=== PATIENT | female | born 1990 | race Caucasian/White ===

== ENCOUNTER 2019-06-17 14:12 | Emergency (ER) | payer BC, SELFPAY ==
[2019-06-17 14:15] VITALS: BP 133/90; PULSE 97; RESP 19; TEMP 36.2; O2SAT 100
--- NOTE | 2019-06-17 14:34 | ED.BURNSMOKE ---
HPI - Burn/Smoke Inhalation General Chief complaint: Burn/Smoke Inhalation Stated complaint: hand injury Time Seen by Provider: 06/17/19 14:24 Source: patient Mode of arrival: ambulatory Limitations: no limitations History of Present Illness HPI Narrative: This is a 29 year old female that presents to the ER for burn to the hands. Reports she was cleaning her Keurig and the coffee cup was about to overfill so she grabbed the cup and it was hot. Reports she then spilt the hot water on her hands. Reports burning pain on the back of her right hand and back of the fingers on her left hand. Denies numbness. Related Data Home Medications Medication Instructions Recorded Confirmed trazodone 04/11/19 Allergies Allergy/AdvReac Type Severity Reaction Status Date / Time No Known Allergies Allergy Verified 06/17/19 14:18 Review of Systems Review of Systems: Narrative: CONSTITUTIONAL: Denies fever SKIN: Reports burn NEUROLOGIC: Denies numbness All systems reviewed & are unremarkable except as noted in HPI and below PMFSH Past Medical History Medical History (Updated 06/17/19 @ 15:53 by Opal Parra PA-C) History of sleep disturbance Social History Social History (Updated 06/17/19 @ 14:38 by Opal Parra PA-C) Smoking status: Never smoker Gender identity (if verbalized by the patient): Female Exam Narrative: Exam Narrative: GENERAL: Well-appearing, well-nourished, and in no acute distress. HEAD: Normocephalic, atraumatic. EYES: EOMI. EXTREMITIES: Normal range of motion. No edema, erythema, blistering or skin breakdown. Mild redness to the dorsal surface of the left 2nd-4th fingers. SKIN: Warm, dry, no rash. NEURO: No focal deficits. Alert and oriented x3. PSYCH: Normal mood and affect Course Vital Signs Vital signs: Vital Signs Temperature 97.2 F L 06/17/19 14:15 Pulse Rate 97 06/17/19 14:15 Respiratory Rate 06/17/19 14:15 Blood Pressure 133/90 06/17/19 14:15 Pulse Oximetry 100 06/17/19 14:15 Temperature 97.2 F L 06/17/19 14:15 Pulse Rate 97 06/17/19 14:15 Respiratory Rate 06/17/19 14:15 Blood Pressure 133/90 06/17/19 14:15 Pulse Oximetry 100 06/17/19 14:15 MDM - Burn/Smoke Inhalation MDM Narrative Medical decision making narrative: Patient presents to the emergency department for superficial burn to the left second through fourth fingers. Patient was updated on tetanus. Her wounds were cleansed and bandaged with Silvadene and Kerlix. Patient was instructed on wound care. She will be given plastics for follow-up. Patient was given warnings to return to the ER Critical Care Time Critical Care Time Critical Care Time: No Discharge Plan Discharge Clinical Impression: Superficial burn of back of right hand Qualifiers: Encounter type: initial encounter Qualified Code(s): T23.161A - Burn of first degree of back of right hand, initial encounter Superficial burn of digit of left hand Qualifiers: Encounter type: initial encounter Qualified Code(s): T23.122A - Burn of first degree of single left finger (nail) except thumb, initial encounter Patient Disposition: Home, Self-Care Condition: Stable Instructions: Antibiotic Form, Superficial Burn (ED) Additional Instructions: Return to the emergency department if you experience fever, increasing redness and swelling of your wounds, abnormal drainage from your wound, or any other symptoms that are concerning to you Apply ointment and change your bandage twice daily. Keep the area clean with mild soap and water Follow-up with your primary care doctor. Dr. Bey is a plastic/hand surgeon if needed Prescriptions: No Action trazodone 50 mg tablet RF: 0 amoxicillin 500 mg tablet 500 mg PO Q8H 10 Days Qty: 30 RF: 0 ibuprofen [IBU] 600 mg tablet 600 mg PO Q6H PRN (Reason: fever or pain) Qty: 10 RF: 0 Follow-up/Referrals: Demetria,Sandi De Los Santos, BUSINESS MACHINES TEACHER-BC [Primary Care Provider
[2019-06-17] MEDS: SILVER SULFADIAZINE 1% CR 50 GM JAR (*BKC) 1 APPLIC TOPICAL (15:54)
[2019-06-17] MEDS: TETANUS,DIPHTHERIA,AC PERTUSSIS ADULT 0.5 ML (ADACEL) IM (15:54)
--- NOTE | 2019-06-23 07:47 | PC.NURSE ---
LATE ENTRY This note is being entered to document information to the patient's record. The following information was omitted on [06/17/19]. silvadene and gauze dressing applied to brothers on left hand and fingers. pt states pain is less intense after dressing applied.
== END 2019-06-17 16:12 | disposition home or self-care (01) ==
PROVIDERS: Emergency Provider Emergency Medicine; PCP Nurse Practitioner Family
DX: T23.161A Burn of first degree of back of right hand, initial encounter (principal); T23.132A Burn of first degree of multiple left fingers (nail), not including thumb, initial encounter; T31.0 Burns involving less than 10% of body surface; Z23 Encounter for immunization; X11.8XXA Contact with other hot tap-water, initial encounter
CPT/HCPCS: 16000; 90471; 90715; 99283; A9270

== ENCOUNTER 2019-06-29 08:58 | Emergency (ER) | payer BC, SELFPAY ==
[2019-06-29] VITALS (7 sets, daily range): BP systolic 108–149; BP diastolic 70–99; PULSE 110–143; RESP 19–34; TEMP 36.6–37.4; O2SAT 97–100
--- NOTE | ~2019-06-29 | XR_ITS ---
EXAMINATION: XR chest 2V 06/29/2019 10:12 INDICATION: Cough, fever and shortness of breath PROCEDURE: 2 view chest COMPARISON: Comparison to multiple prior studies sequentially, with oldest reviewed study dated 12/09. FINDINGS: The lungs are clear. The cardiomediastinal silhouette is within normal limits. There are no pleural effusions. There is no pneumothorax suspected. IMPRESSION: 1: NO ACUTE CARDIOPULMONARY DISEASE. Reviewed, dictated and finalized at location B. ECTIVE SIGNAL REPAIRER
--- NOTE | 2019-06-29 09:55 | ED.URI ---
HPI - URI/Sore Throat General Chief Complaint: Upper Respiratory Infection <DIANA Delacruz Last Filed: 06/29/19 12:25> Stated Complaint: strep <DIANA Delacruz Last Filed: 06/29/19 12:25> Time Seen by Provider: 06/29/19 09:40 <DIANA Delacruz Last Filed: 06/29/19 12:25> Source: patient <DIANA Delacruz Last Filed: 06/29/19 12:25> Mode of arrival: ambulatory <DIANA Delacruz Last Filed: 06/29/19 12:25> Limitations: no limitations <DIANA Delacruz Last Filed: 06/29/19 12:25> History of Present Illness HPI Narrative: This is a 29 year old female that presents to the ER for cold symptoms x 2 days. Reports fever, cough, congestion, and sore throat. Also reports some shortness of breath. Reports her mother was recently seen here and diagnosed with influenza. Denies chest pain. <DIANA Delacruz Last Filed: 06/29/19 12:25> Related Data Home Medications: Home Medications Medication Instructions Recorded Confirmed trazodone 04/11/19 L norgest/e.estradiol-e.estrad 06/29/19 [Ashlyna] <DIANA Delacruz Last Filed: 06/29/19 12:25> Allergies/Adverse Reactions: Allergies Allergy/AdvReac Type Severity Reaction Status Date / Time No Known Allergies Allergy Verified 06/29/19 09:25 <DIANA Delacruz Last Filed: 06/29/19 12:25> Review of Systems Review of Systems: Narrative: CONSTITUTIONAL: Reports fever, chills ENT: Reports rhinorrhea, congestion, sore throat. Denies otalgia. CARDIOVASCULAR: Denies chest pain RESPIRATORY: Reports cough and dyspnea. <DIANA Delacruz Last Filed: 06/29/19 12:25> All systems reviewed & are unremarkable except as noted in HPI and below <DIANA Delacruz Last Filed: 06/29/19 12:25> [facility] Past Medical History Medical History: Medical History (Updated 06/29/19 @ 12:21 by Opal Parra PA-C) History of sleep disturbance <Opal Parra PA-C - Last Filed: 06/29/19 12:25> Social History Social History: Social History (Updated 06/17/19 @ 14:38 by Opal Parra PA-C) Smoking status: Never smoker Gender identity (if verbalized by the patient): Female <Opal Parra PA-C - Last Filed: 06/29/19 12:25> Exam Narrative: Exam Narrative: GENERAL: Well-appearing, well-nourished, and in no acute distress. HEAD: Normocephalic, atraumatic. EYES: EOMI. ENT: Nares with rhinorrhea, no epistaxis. Mucous membranes moist. Oropharynx with mild tonsillar hypertrophy and erythema, no exudate or other lesions. Bilateral TMs pearly melendez non-bulging NECK: Supple. No adenopathy or masses. CHEST: Clear to auscultation. No respiratory distress. No wheezes rales or rhonchi HEART: Tachycardic, regular rhythm. No murmur heard. Normal peripheral pulses. EXTREMITIES: Normal range of motion. No edema. SKIN: Warm, dry, no rash. NEURO: No focal deficits. Alert and oriented x3. PSYCH: Normal mood and affect <Opal Parra PA-C - Last Filed: 06/29/19 12:25> Course Vital Signs Vital signs: Vital Signs Temperature 37.4 C 06/29/19 09:16 Pulse Rate 134 H 06/29/19 09:16 Respiratory Rate 34 H 06/29/19 09:16 Blood Pressure 149/99 H 06/29/19 09:16 Pulse Oximetry 99 06/29/19 09:16 Temperature 36.8 C 06/29/19 13:18 Pulse Rate 110 H 06/29/19 13:18 Respiratory Rate 19 06/29/19 13:18 Blood Pressure 118/84 06/29/19 13:18 Pulse Oximetry 100 06/29/19 13:18 <Opal Parra PA-C - Last Filed: 06/29/19 12:25> Vital Signs Temperature 37.4 C 06/29/19 09:16 Pulse Rate 134 H 06/29/19 09:16 Respiratory Rate 34 H 06/29/19 09:16 Blood Pressure 149/99 H 06/29/19 09:16 Pulse Oximetry 99 06/29/19 09:16 Temperature 36.8 C 06/29/19 13:18 Pulse Rate 110 H 06/29/19 13:18 Respiratory Rate 19 06/29/19 13:18 Blood Pressure 118/84 06/29/19 13:18 Pulse Oximetry 100 06/29/19 13:18 <Alicia Escobar
--- NOTE | 2019-06-29 10:05 | PC.NURSE ---
Patient to radiology
[2019-06-29] MEDS: SODIUM CHLORIDE 0.9% IV 1,000 ML 999 ML IV CONT ×2 (10:32→12:17)
== END 2019-06-29 13:35 | disposition home or self-care (01) ==
PROVIDERS: Emergency Provider Emergency Medicine; PCP Nurse Practitioner Family
DX: B34.9 Viral infection, unspecified (principal)
CPT/HCPCS: 71046; 87081; 87804; 87880; 96361; 96374; 99284; J0131; J7030

== ENCOUNTER 2021-03-13 09:44 | Emergency (ER) | payer BC, SELFPAY ==
[2021-03-13 09:56] VITALS: BP 147/95; PULSE 105; RESP 16; TEMP 36.2; O2SAT 99
[2021-03-13 11:46] VITALS: BP 122/79; PULSE 98; RESP 21; O2SAT 99
[2021-03-13] MEDS: SODIUM CHLORIDE 0.9% IV 1,000 ML 999 ML IV CONT ×2 (11:51→13:02)
[2021-03-13] MEDS: METOCLOPRAMIDE HCL INJ 10 MG/2 ML VIAL IV PUSH (11:51)
[2021-03-13 11:52] LABS: Basophils Absolute Auto 0.1 K/mm3 (0.0-0.1); Basophils Percent Auto 0.5 % (0.2-1.2); Eosinophils Absolute Auto 0.2 K/mm3 (0-0.3); Eosinophils Percent Auto 1.4 % (0-4.4); Hemoglobin 13.6 g/dL (12.0-15.0); Immature Granulocyte Absolute 0.04 K/mm3 (0.00-0.031); Immature Granulocyte Percent A 0.4 % (0-0.5); Lymphocytes Absolute Auto 1.83 K/mm3 (0.9-3.2); Lymphocytes Percent Auto 16.2 % (18.3-44.2); Mean Corpuscular Hemoglobin 28.8 pg (26-34); Mean Corpuscular Volume 84.7 fl (80-100); Mean Platelet Volume 8.5 fl (7.4-10.4); Monocytes Absolute Auto 0.5 K/mm3 (0.1-0.6); Monocytes Percent Auto 4.5 % (2.6-8.5); Neutrophils Absolute Auto 8.7 K/mm3 (1.3-6.7); Platelet Count Result 360 k/mm3 (150-375); Red Blood Count 4.72 M/mm3 (4.2-5.4); White Blood Count 11.3 K/mm3 (4.5-10.0)
[2021-03-13 11:57] LABS: Add Urine Microscopic? YES; Appearance Urine Cloudy (Clear); Bacteria Urine Trace /hpf; Bilirubin Urine Negative (Negative); Blood Urine Negative (Negative); Color Urine Amber (Yellow); Glucose Urine UA Negative (Negative); Ketones Urine Trace mg/dL (Negative); Leukocyte Esterase Ur Negative LEU/UL (Negative); Mucus Urine Heavy /lpf; Nitrate Urine Negative (Negative); Protein Urine 1+ mg/dL (Negative); Squamous Epithelial Cell Urine Many /hpf (Few); Urobilinogen Urine Negative mg/dL (<2.0); WBC Urine 0-3 /hpf
[2021-03-13 11:59] LABS: Specific Grav Ur 1.039 (1.001-1.035)
[2021-03-13 12:13] LABS: Alanine Aminotransferase 18 U/L (4-35); Albumin Level 4.3 g/dL (3.5-5.1); Alkaline Phosphatase 98 U/L (38-126); Anion Gap 9 mmol/L (8-16); Aspartate Amino Transferase 19 U/L (14-36); Bilirubin,Total 0.2 mg/dL (0.2-1.3); Blood Urea Nitrogen 6 mg/dL (7-17); Calcium 9.6 mg/dL (8.4-10.2); Carbon Dioxide 23 mmol/L (22-30); Chloride 105 mmol/L (98-107); Estimated CRCL calculation 127 ml/min; Estimated Glomerular Filt Rate > 60; Glucose 94 mg/dL (65-110); Lipase 26 U/L (23-300); Potassium 3.9 mmol/L (3.4-5.0); Sodium 137 mmol/L (137-145)
--- NOTE | 2021-03-13 14:31 | ED.GENADULT ---
HPI - General Adult General Chief complaint: Nausea/Vomiting/Diarrhea Stated complaint: 8 weeks , n/v Time Seen by Provider: 03/13/21 11:03 Source: patient Mode of arrival: ambulatory Limitations: no limitations History of Present Illness HPI narrative: Patient is 30-year-old female G3P 2-week 8 of with chief complaint of persistent vomiting and nausea. Patient reports that she was prescribed Zofran by her PULVI MIXER OPERATOR Dr. Perez but it has not remitted her symptoms. Patient denies pelvic pain or vaginal bleeding. She denies any other symptoms or concerns. Related Data Home Medications Medication Instructions Recorded Confirmed trazodone 04/11/19 L norgest/e.estradiol-e.estrad 06/29/19 [Ashlyna] Allergies Allergy/AdvReac Type Severity Reaction Status Date / Time Sulfa (Sulfonamide Allergy Hives Verified 03/13/21 11:40 Antibiotics) Review of Systems Review of Systems: CONSTITUTIONAL: Denies fever, chills, or sweats. EYES: Denies visual changes, redness, or discharge. ENT: Denies rhinorrhea, congestion, sore throat, or otalgia. CARDIOVASCULAR: Denies chest pain, palpitations, or edema. RESPIRATORY: Denies cough or dyspnea. GASTROINTESTINAL: Reports nausea and vomiting denies abdominal pain or diarrhea. GENITOURINARY: Denies dysuria or hematuria. SKIN: Denies rash or itching. MUSCULOSKELETAL: Denies back pain, joint pain, or myalgia. NEUROLOGIC: Denies headache, numbness, dizziness, or weakness. PSYCHIATRIC: Denies anxiety or depression. PMFSH Past Medical History Medical History (Updated 03/13/21 @ 14:19 by Dorian Hernandez PA-C) History of sleep disturbance Social History Social History (Updated 06/17/19 @ 14:38 by Opal Parra PA-C) Smoking status: Never smoker Gender identity (if verbalized by the patient): Female Exam Narrative: GENERAL: Well-appearing, well-nourished. Appears uncomfortable. Holding emesis bag. HEAD: Normocephalic, atraumatic. EYES: PERRLA and EOMI. NECK: Supple. No adenopathy or masses. Range of motion intact. CHEST: Clear to auscultation. No respiratory distress. No wheezes rales or rhonchi HEART: Regular rate and rhythm. No murmur heard. Normal peripheral pulses. ABDOMEN: Soft, nontender, nondistended, normal active bowel sounds. EXTREMITIES: Normal range of motion. No edema. SKIN: Warm, dry, no rash. NEURO: No focal deficits. Alert and oriented x3. PSYCH: Normal mood and affect. Course Vital Signs Vital signs: Vital Signs Temperature 97.1 F L 03/13/21 09:56 Pulse Rate 105 H 03/13/21 09:56 Respiratory Rate 16 03/13/21 09:56 Blood Pressure 147/95 H 03/13/21 09:56 Pulse Oximetry 99 03/13/21 09:56 Temperature 97.1 F L 03/13/21 09:56 Pulse Rate 98 03/13/21 11:46 Respiratory Rate 21 H 03/13/21 11:46 Blood Pressure 122/79 03/13/21 11:46 Pulse Oximetry 99 03/13/21 11:46 Medical Decision Making MDM Narrative Medical decision making narrative: Patient has had remittance of nausea and vomiting with Reglan. Patient has been able to tolerate p.o. challenge and has urinated multiple times. Patient reports being ready to be discharged immediately and denies any other needs or concerns. Patient has been instructed to follow-up with her PULVI MIXER OPERATOR for further evaluation and management of her . Patient does not want to wait in the emergency department for her OB to be consulted prior to discharge. Patient not have any vaginal bleeding or discharge. Patient not have any pelvic pain. Patient instructed to return to emergency department if she has any emergent symptoms. Vital Signs Vital Signs: Vital Signs Temperature 97.1 F L 03/13/21 09:56 Pulse Rate 105 H 03/13/21 09:56 Respiratory Rate 16 03/13/21 09:56 Blood Pressure 147/95 H 03/13/21 09:56 Pulse Oximetry 99 03/13/21 09:56 Temperature 97.1 F L 03/13/21 09:56 Pulse Rate 98 03/13/21 11:46 Respiratory Rate 21 H 03/13/21 11:46 Bloo
[2021-03-13 14:37] VITALS: BP 121/80; PULSE 97; RESP 20; O2SAT 100
== END 2021-03-13 14:39 | disposition home or self-care (01) ==
PROVIDERS: Physician Assistant; Emergency Provider Emergency Medicine; PCP Nurse Practitioner Family
DX: O21.9 Vomiting of pregnancy, unspecified (principal); Z3A.08 8 weeks gestation of pregnancy
CPT/HCPCS: 36415; 80053; 81001; 81025; 83690; 84702; 85025; 96361; 96374; 99284; J2765; J7030

== ENCOUNTER 2021-03-30 12:00 | Outpatient (CLI) | payer BC, SELFPAY ==
--- NOTE | ~2021-03-30 | US_ITS ---
EXAMINATION: US OB <= 14 weeks fetus DATE: 03/30/2021 12:16 INDICATION: Uncertain dates. . TECHNIQUE: Real-time transabdominal pelvic ultrasound was performed. COMPARISON: None. FINDINGS: The uterus measures 14.2 x 8.3 x 9.6 cm. There is an intrauterine gestational sac. A yolk sac is [place] ntified. The crown rump length measures 5.0 cm, which correlates with an estimated gestational age of 11 weeks and 5 day(s) (+/-) 1 week(s) and 0 day(s). heart motion is identified measurin g 150 beats per minute (bpm) by M-mode Doppler. The right ovary is not visualized. The left ovary moses sures 2.8 x 1.9 x 2.7 cm. There is no free fluid in the pelvis. IMPRESSION: 1. Single living intrauterine gestation with estimated date of delivery of 10/14/2021. Reviewed, dictated and finalized at location A. CONTROLLER IMPRESSION: 1. Single living intrauterine gestation with estimated date of delivery of 09/27.
== END 2021-03-30 12:01 ==
PROVIDERS: Visit Provider Obstetrics & Gynecology Gynecology
DX: Z36.87 Encounter for antenatal screening for uncertain dates (principal)
CPT/HCPCS: 76801

== ENCOUNTER 2021-04-28 10:40 | Emergency (ER) | payer BC, SELFPAY ==
[2021-04-28 10:56] VITALS: BP 142/100; PULSE 105; RESP 14; TEMP 36.6; O2SAT 100
--- NOTE | 2021-04-28 12:18 | ED.DENTAL ---
HPI - Dental/Oral General Chief complaint: Dental/Oral Stated complaint: dental pain Time Seen by Provider: 04/28/21 11:17 Source: patient Mode of arrival: ambulatory Limitations: no limitations History of Present Illness HPI Narrative: This is a 30 year old female that presents to the ER for adenopathy present over the last 2 days. Reports tender left submandibular adenopathy. Associated with a sore throat. Patient reports she is currently 16 weeks . Denies any problems with the . No vaginal bleeding or pelvic cramping. Her OB is Dr. Gunter. Denies fever, or dysphagia. Related Data Home Medications Medication Instructions Recorded Confirmed trazodone 04/11/19 Allergies Allergy/AdvReac Type Severity Reaction Status Date / Time Sulfa (Sulfonamide Allergy Hives Verified 04/28/21 11:49 Antibiotics) Review of Systems Review of Systems: CONSTITUTIONAL: Denies fever ENT: Reports sore throat All systems reviewed & are unremarkable except as noted in HPI and below PMFSH Past Medical History Medical History (Updated 04/28/21 @ 14:18 by Opal Parra PA-C) History of sleep disturbance Social History Social History (Updated 06/17/19 @ 14:38 by Opal Parra PA-C) Smoking status: Never smoker Gender identity (if verbalized by the patient): Female Exam Narrative: GENERAL: Well-appearing, well-nourished, and in no acute distress. HEAD: Normocephalic, atraumatic. EYES: EOMI. ENT: Nares clear, no rhinorrhea or epistaxis. Mucous membranes moist. Oropharynx with erythema, without tonsillar hypertrophy, exudate or other lesions. Uvula midline. No trismus. Floor of mouth is soft. Bilateral TMs pearly melendez non-bulging. Poor dentition, but there is no obvious dental abscess NECK: Supple. Tender left-sided submandibular adenopathy CHEST: Clear to auscultation. No respiratory distress. No wheezes rales or rhonchi HEART: Regular rate and rhythm. No murmur heard. Normal peripheral pulses. EXTREMITIES: Normal range of motion. No edema. SKIN: Warm, dry, no rash. NEURO: No focal deficits. Alert and oriented x3. PSYCH: Normal mood and affect Course Vital Signs Vital signs: Vital Signs Temperature 97.8 F 04/28/21 10:56 Pulse Rate 105 H 04/28/21 10:56 Respiratory Rate 14 04/28/21 10:56 Blood Pressure 142/100 H 04/28/21 10:56 Pulse Oximetry 100 04/28/21 10:56 Temperature 97.8 F 04/28/21 10:56 Pulse Rate 105 H 04/28/21 10:56 Respiratory Rate 14 04/28/21 10:56 Blood Pressure 142/100 H 04/28/21 10:56 Pulse Oximetry 100 04/28/21 10:56 MDM - Dental/Oral MDM Narrative Medical decision making narrative: Patient presents to the emergency department for tender left submandibular adenopathy. She is afebrile and nontoxic-appearing. Mild erythema of the posterior oropharynx. No exudate. Uvula is midline. There is no trismus. The floor the mouth is soft. Patient does have poor dentition, but no obvious dental abscess on exam. Strep screen was negative. This will be sent for culture. Patient will be started on oral antibiotics. Will be given ENT if needed for follow-up. Instructed to follow-up with her OB at her scheduled appointment. She has no related concerns today. She was given warnings to return to the ER Lab Data Attestation: I reviewed the patient's lab results. Labs: Strep Screen Presumptive Negative *(Reference Range: Negative)* Critical Care Time Critical Care Time Critical Care Time: No Discharge Plan Discharge Clinical Impression: Lymphadenopathy, submandibular Patient Disposition: Home, Self-Care Condition: Stable Instructions: Antibiotic Form, Lymphadenopathy (ED) Additional Instructions: Return to the Emergency Department if you experience fever >101, redness and swelling of your face, you are unable to swallow, difficulty breathing, or any other s
[2021-04-28] MEDS: AMOXICILLIN 500 MG CAPSULE PO (14:35)
== END 2021-04-28 14:35 | disposition home or self-care (01) ==
PROVIDERS: Emergency Provider Emergency Medicine; PCP Nurse Practitioner Family
DX: O26.892 Other specified pregnancy related conditions, second trimester (principal); R59.1 Generalized enlarged lymph nodes; Z3A.16 16 weeks gestation of pregnancy
CPT/HCPCS: 87081; 87880; 99283; A9270

== ENCOUNTER 2021-05-02 16:28 | Outpatient (CLI) | payer BC, SELFPAY ==
[2021-05-02 16:58] LABS: Basophils Percent Auto 0.3 % (0.2-1.2); Eosinophils Absolute Auto 0.1 K/mm3 (0-0.3); Eosinophils Percent Auto 1.2 % (0-4.4); Hematocrit 34.2 % (37.0-47.0); Hemoglobin 11.8 g/dL (12.0-15.0); Immature Granulocyte Absolute 0.04 K/mm3 (0.00-0.031); Immature Granulocyte Percent A 0.4 % (0-0.5); Lymphocytes Absolute Auto 1.86 K/mm3 (0.9-3.2); Lymphocytes Percent Auto 17.5 % (18.3-44.2); Mean Corpuscular HGB Conc 34.5 g/dl (32-36); Mean Corpuscular Hemoglobin 28.3 pg (26-34); Mean Platelet Volume 8.5 fl (7.4-10.4); Monocytes Absolute Auto 0.5 K/mm3 (0.1-0.6); Monocytes Percent Auto 4.3 % (2.6-8.5); Neutrophils Absolute Auto 8.1 K/mm3 (1.3-6.7); Neutrophils Percent Auto 76.3 % (45.5-73.1); Platelet Count Result 367 k/mm3 (150-375); Red Blood Count 4.17 M/mm3 (4.2-5.4); Red Cell Distribution Width 13.7 % (11.5-14.5); White Blood Count 10.6 K/mm3 (4.5-10.0)
[2021-05-02 17:09] LABS: Hemoglobin A1C 4.8 % (<5.7)
[2021-05-02 17:31] LABS: Total Volume 24 Hour Urine 700 ml
[2021-05-02 19:48] LABS: Total Protein Urine 24 Hr 112 mg/24hr (28-141); Total Protein Urine Random 16 mg/dL
[2021-05-02 20:07] LABS: Vitamin D 25 Hydroxy 27.3 ng/mL
[2021-05-02 20:30] LABS: HIV 1/2 Ab P24 Ag Result Negative (Negative)
[2021-05-02 20:36] LABS: Rubella IgG Antibody 18.7 IU/ML
[2021-05-02 20:56] LABS: Hepatitis B Surface Anti Res Indeterminate; Hepatitis C Virus Antibody Negative (Negative)
[2021-05-04 13:58] LABS: Rapid Plasma Reagin Non-Reactive (NonReactive)
== END 2021-05-02 16:29 | disposition home or self-care (01) ==
PROVIDERS: PCP Nurse Practitioner Family; Visit Provider Obstetrics & Gynecology Gynecology
DX: Z36.9 Encounter for antenatal screening, unspecified (principal)
CPT/HCPCS: 36415; 81050; 82306; 83036; 84156; 85025; 86592; 86703; 86706; 86762; 86803; 86850; 86900; 86901; G0432

== ENCOUNTER 2021-05-15 11:28 | Outpatient (CLI) | payer BC, SELFPAY ==
--- NOTE | ~2021-05-15 | US_ITS ---
EXAMINATION: US OB /maternal detail DATE: 05/15/2021 12:09 INDICATION: anatomic survey. TECHNIQUE: Real-time ultrasound of the pelvis was performed. COMPARISON: Ultrasound 03/30/2021 FINDINGS: There is a single living fetus in vertex presentation. The placenta is posterior, 6 cm from the cerv ix. heart rate is 135 beats per minute (bpm). The amniotic fluid volume is subjectively normal. The following biometric data were obtained: Biparietal diameter (BPD): 4.0 cm; head circumference (HC): 15.2 cm; abdominal circumference (AC): 12 .0 cm; femur length (FL): 2.5 cm. These measurements are concordant. Estimated weight is 206 g +/- 31 g, which correlates with the 15th percentile when 10/14/21 is u sed as estimated date of delivery. As single measurements, these parameters are each equal to the following estimated gestational ages w ith ranges of +/- 2 standard deviations: BPD: 18 weeks 1 days (16 weeks 3 days - 19 weeks 6 days). HC: 18 weeks 2 days (16 weeks 5 days - 19 weeks 5 days). AC: 17 weeks 5 days (16 weeks 0 days - 19 weeks 3 days). FL: 17 weeks 4 days (16 weeks 1 days - 18 weeks 6 days). estimated gestational age based solely on measurements from this exam is 18 weeks 0 days +/- 1 weeks 2 days. The cerebral ventricles and visualized portions of the spine are normal. The diaphragm, stomach, kidn eys, and bladder are normal. There are two umbilical arteries to yield a 3-vessel cord. The cord inse rtion is normal. The cisterna magna, nuchal fold, lip, and heart are not well visualized. IMPRESSION: 1. Single living fetus in vertex presentation. 2. Estimated weight is 206 g +/- 31 g, which correlates with the 15th percentile when 10/14/21 is used as estimated date of delivery. This date was set by ultrasound on 03/30/2021. 3. cisterna magna, nuchal fold, lip, and heart not well visualized. Otherwise normal jc omic survey. Reviewed, dictated and finalized at location A. ERGARTEN TUTOR IMPRESSION: 1. Single living fetus in vertex presentation. 2. Estimated weight is 206 g +/- 31 g, which correlates with the 15th pe rcentile when 10/14/21 is used as estimated date of delivery. This date was set by ultrasound on 03/30/2021. 3. cisterna magna, nuchal fold, lip, and heart not well visualized. Other wells normal anatomic survey.
== END 2021-05-15 11:29 ==
PROVIDERS: Visit Provider Obstetrics & Gynecology Gynecology
DX: Z36.9 Encounter for antenatal screening, unspecified (principal); Z3A.18 18 weeks gestation of pregnancy
CPT/HCPCS: 76805

== ENCOUNTER 2021-06-13 11:58 | Outpatient (CLI) | payer BC, SELFPAY ==
--- NOTE | ~2021-06-13 | US_ITS ---
EXAMINATION: US OB follow up DATE: 06/13/2021 12:32 INDICATION: Incomplete anatomic survey, second trimester TECHNIQUE: Real-time ultrasound of the pelvis was performed. The interpreting radiologist was not pre sent for the study. COMPARISON: 05/15/2021 FINDINGS: There is a single living fetus in vertex presentation. The placenta is posterior and 7.2 cm from the internal cervical os. cardiac activity and movement are noted. heart rate is 144 beats per minute (bpm). The amniotic fluid index is subjectively normal. The intracranial str uctures and heart appear normal. IMPRESSION: 1. Single living fetus in vertex presentation. 2. Normal-appearing heart and intracranial structures. Reviewed, dictated and finalized at location A. MANAGER
== END 2021-06-13 11:59 ==
PROVIDERS: Visit Provider Obstetrics & Gynecology Gynecology
DX: Z36.2 Encounter for other antenatal screening follow-up (principal)
CPT/HCPCS: 76816

== ENCOUNTER 2021-07-17 10:20 | Outpatient (CLI) | payer BC, SELFPAY ==
--- NOTE | ~2021-07-17 | US_ITS ---
EXAMINATION: US OB follow up DATE: 07/17/2021 10:44 INDICATION: Size greater than dates during third trimester TECHNIQUE: Real-time ultrasound of the pelvis was performed. The interpreting radiologist was not pre sent for the study. COMPARISON: 06/13/2021 FINDINGS: There is a single living fetus in vertex presentation. The placenta is posterior and 6.7 cm from the internal cervical os. cardiac activity and movement are noted. heart rate is 140 beats per minute (bpm). The amniotic fluid index is 19.0 cm which is normal (normal range: 9. 5 cm to 22.6 cm). The following biometric data were obtained: Biparietal diameter (BPD): 7.0 cm; head circumference (HC): 25.8 cm; abdominal circumference (AC): 23 .4 cm; femur length (FL): 4.8 cm. The femoral length to biparietal diameter ratio is greater than two standard below the mean. These me asurements are otherwise concordant. Estimated weight is 1038 g +/- 155 g, which correlates with the 33rd percentile when 10/14/2021 is used as estimated date of delivery. As single measurements, these parameters are each equal to the following estimated gestational ages w ith ranges of +/- 2 standard deviations: BPD: 28 weeks 1 days ( 26 weeks 0 days - 30 weeks 2 days). HC: 28 weeks 1 days ( 26 weeks 0 days - 30 weeks 1 days). AC: 27 weeks 5 days ( 25 weeks 4 days - 29 weeks 6 days). FL: 26 weeks 0 days ( 23 weeks 6 days - 28 weeks 0 days). estimated gestational age based solely on measurements from this exam is 27 weeks 4 days +/- 1 weeks 3 days. IMPRESSION: 1. Single living fetus in vertex presentation. 2. Normal amniotic fluid index. 3. Estimated weight is 1038 g +/- 155 g, which correlates with the 33rd percentile when 10/15/19 22 is used as estimated date of delivery. 4. Femoral length to biparietal diameter ratio greater than two standard deviations below the mean. Reviewed, dictated and finalized at location B. IMPRESSION: 1. Single living fetus in vertex presentation. 2. Normal amniotic fluid index. 3. Estimated weight is 1038 g +/- 155 g, which correlates with the 33rd p ercentile when 10/14/2021 is used as estimated date of delivery. 4. Femoral length to biparietal diameter ratio greater than two standard deviat ions below the mean.
== END 2021-07-17 10:21 ==
PROVIDERS: Visit Provider Obstetrics & Gynecology Gynecology
DX: O36.63X3 Maternal care for excessive fetal growth, third trimester, fetus 3 (principal); Z3A.27 27 weeks gestation of pregnancy
CPT/HCPCS: 76816

== ENCOUNTER 2021-07-17 12:06 | Outpatient (CLI) | payer BC, SELFPAY ==
[2021-07-17 13:47] LABS: Hematocrit 34.2 % (37.0-47.0); Hemoglobin 11.5 g/dL (12.0-15.0)
[2021-07-17 13:59] LABS: Glucose 1 Hour PP 50gm Dose 145 mg/dL
[2021-07-17 14:38] LABS: HIV 1/2 Ab P24 Ag Result Negative (Negative)
[2021-07-17 15:06] LABS: Hepatitis B Surface Antigen Negative (Negative)
== END 2021-07-17 12:07 | disposition home or self-care (01) ==
LOC: ANHLAB 12:10
PROVIDERS: Visit Provider Obstetrics & Gynecology Gynecology
DX: Z34.92 Encounter for supervision of normal pregnancy, unspecified, second trimester (principal); Z3A.18 18 weeks gestation of pregnancy
CPT/HCPCS: 36415; 82306; 82947; 85014; 85018; 86703; 87340; G0432

== ENCOUNTER 2021-07-26 13:48 | Emergency (ER) | payer BC, SELFPAY ==
[2021-07-26 13:52] VITALS: BP 133/86; PULSE 99; RESP 18; TEMP 36.6; O2SAT 100
--- NOTE | 2021-07-26 14:11 | ECG_ITS ---
Measurements Intervals [place] Rate: 85 P: 26 OK: 116 QRS: 20 QRSD: 92 T: 15 QT: 367 QTc: 437 Interpretive Statements SINUS RHYTHM WITH SHORT OK INTERVAL BORDERLINE ECG NO PREVIOUS ECG AVAILABLE FOR COMPARISON Electronically Signed On 07-26-2021 15:34:30 CDT by Deion Myers M.D.
--- NOTE | 2021-07-26 14:12 | ED.SYNCOPE ---
HPI - Syncope General Chief Complaint: Syncope Stated Complaint: syncope, 28 weeks Time Seen by Provider: 07/26/21 13:56 History of Present Illness HPI narrative: 31-year-old female presents emergency room with complaints of a near syncopal episode. Patient is 20 weeks , has a history of preeclampsia from previous pregnancies. Patient has been experiencing hyperemesis with this . Patient denies nausea or vomiting at this time. Denies injury or trauma Related Data Home Medications Medication Instructions Recorded Confirmed trazodone 04/11/19 escitalopram oxalate 10 mg PO DAILY 07/26/21 Allergies Allergy/AdvReac Type Severity Reaction Status Date / Time Sulfa (Sulfonamide Allergy Hives Verified 04/28/21 11:49 Antibiotics) Review of Systems Review of Systems: CONSTITUTIONAL: Denies fever, chills, or sweats. EYES: Denies visual changes, redness, or discharge. ENT: Denies rhinorrhea, congestion, sore throat, or otalgia. CARDIOVASCULAR: Denies chest pain, palpitations, or edema. RESPIRATORY: Denies cough or dyspnea. GASTROINTESTINAL: Denies abdominal pain, nausea, vomiting, or diarrhea. GENITOURINARY: Denies dysuria or hematuria. SKIN: Denies rash or itching. MUSCULOSKELETAL: Denies back pain, joint pain, or myalgia. NEUROLOGIC: Reports dizziness and lightheadedness PSYCHIATRIC: Denies anxiety or depression. PMFSH Past Medical History Medical History History of sleep disturbance Social History Social History Smoking status: Never smoker Gender identity (if verbalized by the patient): Female Exam Narrative: GENERAL: Well-appearing, well-nourished, and in no acute distress. HEAD: Normocephalic, atraumatic. EYES: PERRLA and EOMI. ENT: Nares clear, no rhinorrhea or epistaxis. Mucous membranes moist. NECK: Supple. No adenopathy or masses. No carotid bruits or JVD CHEST: Clear to auscultation. No respiratory distress. No wheezes rales or rhonchi HEART: Regular rate and rhythm. No murmur heard. Normal peripheral pulses. ABDOMEN: Soft, nontender, nondistended, normal active bowel sounds. EXTREMITIES: Normal range of motion. No edema. SKIN: Warm, dry, no rash. NEURO: No focal deficits. Alert and oriented x3. PSYCH: Normal mood and affect. Course Course Emergency Course: 1630: Discussed case with Dr. Coello. She states that she will have the patient follow-up with her in office in the next 4 to 5 days. Vital Signs Vital signs: Vital Signs Temperature 36.6 C 07/26/21 13:52 Pulse Rate 99 07/26/21 13:52 Respiratory Rate 18 07/26/21 13:52 Blood Pressure 133/86 07/26/21 13:52 Pulse Oximetry 100 07/26/21 13:52 Temperature 36.6 C 07/26/21 13:52 Pulse Rate 99 07/26/21 13:52 Respiratory Rate 18 07/26/21 13:52 Blood Pressure 133/86 07/26/21 13:52 Pulse Oximetry 100 07/26/21 13:52 MDM - Syncope MDM Narrative Medical decision making narrative: 31-year-old female presents emergency room following a near syncopal episode while she was standing at work. Patient denies any nausea or vomiting. CBC shows a slight anemia likely related to her . Patient was given fluids while here in the emergency room, states she is feeling better. 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 Patient likely experienced a syncopal episode due to fluctuations in her her blood pressure secondary to her . Differential Diagnosis Differential diagnosis: Likely syncope due to orthostatic hypotension Medical Records Attestation: I reviewed the patient's medical records. Lab Data Attestation: I reviewed the patient's lab results. Result diagrams: 07/26/21 14:17 07/26/21 14:17 Labs: Lab Results 07/26/21 07/26/21 07/26/21 Range/Units
--- NOTE | 2021-07-26 14:29 | PC.NURSE ---
called Elsy in OB that pt has order for NST - please send an OB nurse over to NST pt. FHT's in '
[2021-07-26 14:30] LABS: Basophils Absolute Auto 0.1 K/mm3 (0.0-0.1); Basophils Percent Auto 0.4 % (0.2-1.2); Eosinophils Absolute Auto 0.1 K/mm3 (0-0.3); Eosinophils Percent Auto 0.5 % (0-4.4); Hematocrit 34.4 % (37.0-47.0); Hemoglobin 11.3 g/dL (12.0-15.0); Immature Granulocyte Absolute 0.07 K/mm3 (0.00-0.031); Immature Granulocyte Percent A 0.6 % (0-0.5); Lymphocytes Absolute Auto 1.71 K/mm3 (0.9-3.2); Lymphocytes Percent Auto 14.9 % (18.3-44.2); Mean Corpuscular HGB Conc 32.8 g/dl (32-36); Mean Corpuscular Hemoglobin 27.8 pg (26-34); Mean Corpuscular Volume 84.5 fl (80-100); Mean Platelet Volume 9.8 fl (7.4-10.4); Monocytes Absolute Auto 0.6 K/mm3 (0.1-0.6); Monocytes Percent Auto 5.5 % (2.6-8.5); Neutrophils Percent Auto 78.1 % (45.5-73.1); Platelet Count Result 336 k/mm3 (150-375); Red Blood Count 4.07 M/mm3 (4.2-5.4); Red Cell Distribution Width 13.2 % (11.5-14.5); White Blood Count 11.5 K/mm3 (4.5-10.0)
[2021-07-26 14:41] LABS: Alanine Aminotransferase 8 U/L (4-35); Albumin Level 3.6 g/dL (3.5-5.1); Alkaline Phosphatase 136 U/L (38-126); Anion Gap 8 mmol/L (8-16); Aspartate Amino Transferase 17 U/L (14-36); Bilirubin,Total 0.2 mg/dL (0.2-1.3); Blood Urea Nitrogen 4 mg/dL (7-17); Carbon Dioxide 21 mmol/L (22-30); Chloride 107 mmol/L (98-107); Estimated CRCL calculation 173 ml/min; Estimated Glomerular Filt Rate > 60; Glucose 86 mg/dL (65-110); Potassium 3.6 mmol/L (3.4-5.0); Sodium 136 mmol/L (137-145)
[2021-07-26 14:47] LABS: Appearance Urine Clear (Clear); Bilirubin Urine Negative (Negative); Blood Urine Negative (Negative); Color Urine Yellow (Yellow); Glucose Urine UA Negative (Negative); Ketones Urine Negative (Negative); Leukocyte Esterase Ur Negative LEU/UL (Negative); Nitrate Urine Negative (Negative); Protein Urine Negative (Negative); Specific Grav Ur 1.025 (1.001-1.035); Urobilinogen Urine 0.2 mg/dL (<2.0)
[2021-07-26 14:51] LABS: Add Urine Microscopic? YES; Mucus Urine Moderate /lpf; RBC Urine 0-2 /hpf (0-2); Squamous Epithelial Cell Urine Occasional /hpf (Few); WBC Urine 0-3 /hpf
--- NOTE | 2021-07-26 14:58 | PC.NURSE ---
Ob was here to monitor baby and stated that everything check out well.
[2021-07-26] MEDS: SODIUM CHLORIDE 0.9% IV 1,000 ML 999 ML IV CONT (15:08)
[2021-07-26 16:46] VITALS: BP 125/84; PULSE 95; RESP 16; O2SAT 100
== END 2021-07-26 16:47 | disposition home or self-care (01) ==
PROVIDERS: Emergency Provider Nurse Practitioner Family; PCP Nurse Practitioner Family
DX: I95.1 Orthostatic hypotension (principal)
CPT/HCPCS: 36415; 80053; 81001; 85025; 93005; 96360; 96361; 99283; J7030

== ENCOUNTER 2021-07-28 13:45 | Outpatient (CLI) | payer BC, SELFPAY ==
[2021-07-28 14:33] LABS: Glucose Fasting Gestational 84 mg/dL (>/=95)
[2021-07-28 16:06] LABS: Glucose 1 Hour Gest 105 mg/dL (>/=180)
[2021-07-28 17:02] LABS: Glucose 2 Hour Gest 112 mg/dL (>/= 155)
[2021-07-28 17:53] LABS: Glucose 3 Hour Gest 115 mg/dL (>/=140)
== END 2021-07-28 13:46 | disposition home or self-care (01) ==
LOC: ANHLAB 13:51
PROVIDERS: PCP Nurse Practitioner Family; Visit Provider Obstetrics & Gynecology Gynecology
DX: O99.810 Abnormal glucose complicating pregnancy (principal); Z3A.28 28 weeks gestation of pregnancy
CPT/HCPCS: 36415; 82951; 82952

== ENCOUNTER 2021-08-02 12:25 | Outpatient (CLI) | payer BC, SELFPAY ==
[2021-08-02 13:09] VITALS: BP 115/70; PULSE 87
[2021-08-02 13:15] VITALS: BP 115/69; PULSE 87
[2021-08-02 13:15] LABS: Basophils Percent Auto 0.4 % (0.2-1.2); Eosinophils Absolute Auto 0.1 K/mm3 (0-0.3); Hematocrit 33.5 % (37.0-47.0); Hemoglobin 10.9 g/dL (12.0-15.0); Immature Granulocyte Absolute 0.04 K/mm3 (0.00-0.031); Immature Granulocyte Percent A 0.4 % (0-0.5); Lymphocytes Absolute Auto 1.56 K/mm3 (0.9-3.2); Lymphocytes Percent Auto 16.9 % (18.3-44.2); Mean Corpuscular HGB Conc 32.5 g/dl (32-36); Mean Corpuscular Hemoglobin 27.4 pg (26-34); Mean Corpuscular Volume 84.2 fl (80-100); Mean Platelet Volume 9.4 fl (7.4-10.4); Monocytes Absolute Auto 0.5 K/mm3 (0.1-0.6); Monocytes Percent Auto 5.7 % (2.6-8.5); Neutrophils Percent Auto 75.6 % (45.5-73.1); Platelet Count Result 280 k/mm3 (150-375); Red Blood Count 3.98 M/mm3 (4.2-5.4); Red Cell Distribution Width 13.4 % (11.5-14.5); White Blood Count 9.3 K/mm3 (4.5-10.0)
[2021-08-02 13:21] LABS: Add Urine Microscopic? YES; Appearance Urine Cloudy (Clear); Bacteria Urine 1+ /hpf; Bilirubin Urine Negative (Negative); Blood Urine Negative (Negative); Color Urine Yellow (Yellow); Glucose Urine UA Negative (Negative); Ketones Urine Negative (Negative); Leukocyte Esterase Ur 1+ LEU/UL (NEGATIVE); Mucus Urine Few /lpf; Nitrate Urine Negative (Negative); Protein Urine Negative (Negative); Specific Grav Ur 1.016 (1.001-1.035); Squamous Epithelial Cell Urine Many /hpf (Few); Urobilinogen Urine Negative mg/dL (<2.0)
[2021-08-02 13:22] LABS: Creatinine Urine 181.4 mg/dL; Total Protein Urine Random 6 mg/dL; Ur Ttl Prot Creatinine Ratio 0.03 mg/mg (0-0.20)
[2021-08-02 13:27] LABS: Alanine Aminotransferase 7 U/L (4-35); Albumin Level 3.5 g/dL (3.5-5.1); Alkaline Phosphatase 147 U/L (38-126); Anion Gap 6 mmol/L (8-16); Aspartate Amino Transferase 17 U/L (14-36); Bilirubin,Total 0.2 mg/dL (0.2-1.3); Blood Urea Nitrogen 3 mg/dL (7-17); Calcium 8.7 mg/dL (8.4-10.2); Carbon Dioxide 22 mmol/L (22-30); Chloride 107 mmol/L (98-107); Estimated Glomerular Filt Rate > 60; Glucose 83 mg/dL (65-110); Potassium 3.5 mmol/L (3.4-5.0); Sodium 135 mmol/L (137-145); Uric Acid 3.9 mg/dL (2.5-7.5)
[2021-08-02 13:30] VITALS: BP 112/71; PULSE 90
[2021-08-02 13:45] VITALS: BP 118/80; PULSE 87
== END 2021-08-02 14:00 | disposition home or self-care (01) ==
LOC: ANHOBOP 12:32 → ANHOBPP 12:34
PROVIDERS: PCP Nurse Practitioner Family; Visit Provider Obstetrics & Gynecology Gynecology
DX: O13.3 Gestational [pregnancy-induced] hypertension without significant proteinuria, third trimester (principal); Z3A.28 28 weeks gestation of pregnancy
CPT/HCPCS: 36415; 80053; 81001; 82570; 84156; 84550; 85025; 87086; 87088; 99199

== ENCOUNTER 2021-08-24 21:03 | Observation (INO) | payer BC, SELFPAY ==
[2021-08-24 21:27] LABS: Add Urine Microscopic? NO; Appearance Urine Clear (Clear); Bilirubin Urine Negative (Negative); Blood Urine Negative (Negative); Color Urine Yellow (Yellow); Glucose Urine UA Negative (Negative); Ketones Urine Negative (Negative); Leukocyte Esterase Ur Negative LEU/UL (NEGATIVE); Nitrate Urine Negative (Negative); Protein Urine Negative (Negative); Specific Grav Ur 1.006 (1.001-1.035); Urobilinogen Urine Negative mg/dL (<2.0)
[2021-08-24 21:30] VITALS: BP 120/72; PULSE 95
[2021-08-24 21:45] VITALS: BP 120/69; PULSE 93
--- NOTE | 2021-08-29 13:56 | P.PNOB_ITS ---
OB - Triage/Final Diagnosis Visit Information Reason for evaluation: threatened labor Comments/Additional reasons for admission: I have assessed the risk for this patient, Kassie Vasquez, and determined that she would benefit from observation care. Evaluation Laboratory results: Laboratory Tests 08/24/21 21:18 Urine Color Yellow Urine Appearance Clear Urine pH 6.0 Ur Specific [place] 1.006 Urine Protein Negative Urine Glucose (UA) Negative Urine Ketones Negative Ur Blood (Man) Negative Urine Nitrate Negative Urine Bilirubin Negative Urine Urobilinogen Negative Ur Leukocyte Esterase Negative
== END 2021-08-24 22:14 | disposition home or self-care (01) ==
PROVIDERS: Admitting Provider Obstetrics & Gynecology Gynecology; PCP Nurse Practitioner Family; Visit Provider Obstetrics & Gynecology Gynecology
DX: O26.899 Other specified pregnancy related conditions, unspecified trimester (principal); R10.2 Pelvic and perineal pain; Z3A.00 Weeks of gestation of pregnancy not specified
CPT/HCPCS: 81003; 87086; G0378; G0379

== ENCOUNTER 2021-09-06 10:51 | Observation (INO) | payer BC, SELFPAY ==
[2021-09-06 11:06] VITALS: BP 130/73; PULSE 96
--- NOTE | 2021-09-06 11:25 | PC.NURSE ---
Pt taken to ED for evaluation
[2021-09-06 11:31] VITALS: BP 130/73; PULSE 106
--- NOTE | 2021-09-12 13:15 | PM.OBTRLD ---
OB - Triage/Final Diagnosis Visit Information Comments/Additional reasons for admission: I have assessed the risk for this patient, Kassie Vasquez, and determined that she would benefit from observation care. Final Diagnosis (1) labor: Code(s): O60.00 - labor without delivery, unspecified trimester Status: Acute
== END 2021-09-06 11:25 | disposition other institution (70) ==
PROVIDERS: Admitting Provider Obstetrics & Gynecology Gynecology; PCP Nurse Practitioner Family; Visit Provider Obstetrics & Gynecology Gynecology
DX: O99.340 Other mental disorders complicating pregnancy, unspecified trimester (principal); Z3A.00 Weeks of gestation of pregnancy not specified; F41.9 Anxiety disorder, unspecified
CPT/HCPCS: 59025; 99283; A9270; G0378; G0379

== ENCOUNTER 2021-09-06 11:30 | Emergency (ER) | payer BC, SELFPAY ==
[2021-09-06 11:44] VITALS: BP 140/76; PULSE 100; RESP 16; TEMP 36.3; O2SAT 100
--- NOTE | 2021-09-06 13:00 | ED.ANXIETY ---
HPI - Anxiety General Chief Complaint: Anxiety Stated Complaint: ANXIETY, 34 WEEKS Time Seen by Provider: 09/06/21 12:29 Source: patient Mode of arrival: ambulatory Limitations: no limitations History of Present Illness HPI narrative: 31 y/o female presents to the ER today for complaints of acute panic/anxiety. She says that it started when she was at work today. She was crying and hyperventilating. She got numbness in her fingers. She was initially seen in labor and deliver to evaluate baby and that was okay. She reports that she is feeling better now but still getting waves of emotional upset. She has several triggers. She is currently treated with SSRI and trazodone for her depression and anxiety. She has been in contact with her OB provider today. Physically she is feeling okay. No chest pain. No shortness of breath. No symptoms of illness. She denies any suicidal thoughts. Related Data Home Medications Medication Instructions Recorded Confirmed trazodone 100 mg PO DAILY 04/11/19 Vitamin 1 tablet DAILY 08/02/21 08/02/21 ergocalciferol (vitamin D2) 50,000 unit PO WEEKLY 08/02/21 08/02/21 ferrous sulfate 27 mg PO BID 08/02/21 08/02/21 fluoxetine 20 mg DAILY 08/02/21 08/02/21 Allergies Allergy/AdvReac Type Severity Reaction Status Date / Time Sulfa (Sulfonamide Allergy Hives Verified 04/28/21 11:49 Antibiotics) Review of Systems Constitutional: Constitutional: Denies chills, Denies fatigue, Denies fever(s) and Denies weakness ENT: Denies sore throat Cardiovascular: Cardiovascular: Denies chest pain, Denies rapid heart rate and Denies radiating jaw, neck or arm pain Respiratory: Respiratory: Denies chest congestion, Denies cough, Denies dyspnea and Denies wheezing Gastrointestinal: Gastrointestinal: Denies abdominal pain, Denies diarrhea, Denies nausea and Denies vomiting Genitourinary: Genitourinary: Reports no additional female genitourinary complaints Musculoskeletal: Musculoskeletal: Denies back pain, Denies myalgias and Denies arthralgias Integumentary/Breasts: Skin/Breast: Denies rash Neurologic: Denies confusion, Denies dizziness, Denies headache(s), Denies focal weakness, Denies numbness and Denies weakness Psychiatric: Psychiatric: Reports anxiety, Reports depression, Denies homicidal ideation and Denies suicidal ideation Endocrine: Endocrine: Denies fatigue Hematologic/Lymphatic: Hematologic/Lymphatic: Reports no additional hematologic/lymphatic complaints Allergic/Immunologic: Allergic/Immunologic: Reports no additional allergic/immunologic complaints [facility] Past Medical History Medical History History of sleep disturbance Social History Social History Smoking status: Never smoker Substance use type: does not use Gender identity (if verbalized by the patient): Female Exam Const: General: no acute distress Orientation/consciousness: patient oriented x3 HENMT: Head: normal to inspection Eyes: Conjunctivae: conjunctivae normal Neck: Neck: normal visual inspection Chest: Chest palpation & inspection: normal inspection of the chest Resp: Effort & Inspection: normal respiratory effort Auscultation: clear to auscultation bilaterally Cardio: Rate: regular rate Rhythm: regular rhythm GI: GI Palp: Yes Soft to palpation, No Tenderness to palpation present (GI) and No Guarding due to palpation present (GI) Auscultation: normal bowel sounds : General: Yes no CVA tenderness Skin: General skin exam: normal color Neuro: General: patient oriented x3 and moves all extremities Extrem: General: normal to inspection Psych: Mental Status: mental status grossly normal Affect: normal affect Attitude: cooperative Thought content: Yes Normal thought content present and No Suicidality present Course Course Emergency Course: Discussed with haily
[2021-09-06] MEDS: LORazepam (*CRX) 0.5 MG TABLET PO (13:17)
[2021-09-06 13:43] VITALS: BP 132/80; PULSE 86; RESP 16; TEMP 36.8; O2SAT 98
== END 2021-09-06 13:45 | disposition home or self-care (01) ==
PROVIDERS: Emergency Provider Nurse Practitioner Family; PCP Nurse Practitioner Family
DX: O99.343 Other mental disorders complicating pregnancy, third trimester (principal); F41.9 Anxiety disorder, unspecified; F32.A Depression, unspecified; Z3A.34 34 weeks gestation of pregnancy
CPT/HCPCS: 99283; A9270

== ENCOUNTER 2021-10-09 05:49 | Inpatient (IN) | payer BC, SELFPAY ==
[2021-10-09] VITALS (87 sets, daily range): BP systolic 118–152; BP diastolic 60–97; PULSE 65–90; RESP 16–18; TEMP 36.3–37.4; O2SAT 96–100; BMI 38.9
[2021-10-09] MEDS: LACTATED RINGERS 1,000 ML 125 ML IV CONT ×2 (06:45→07:29)
--- NOTE | 2021-10-09 06:57 | LDADM ---
This patient, Kassie Vasquez, was admitted to Labor/Delivery/Recovery 106 on 10/09/21 at 05:49. Plans for labor, pain management and were discussed with patient. Patient/family oriented to hospital policies and general routines including ID bracelet, bed and alarms, visiting hours, pain management, procedures, bathroom and other care routines, personal items, smoking policy, room service/diet and guest tray routines, infant security routines, and visiting hours. Patient/Family are encouraged to report perceived risks to care and to ask questions if they do not understand what they are told or what they should do. See OBIX for further documentation.
[2021-10-09 06:58] LABS: Basophils Absolute Auto 0.1 K/mm3 (0.0-0.1); Basophils Percent Auto 0.7 % (0.2-1.2); Eosinophils Absolute Auto 0.1 K/mm3 (0-0.3); Eosinophils Percent Auto 0.6 % (0-4.4); Hematocrit 34.7 % (37.0-47.0); Immature Granulocyte Absolute 0.09 K/mm3 (0.00-0.031); Immature Granulocyte Percent A 0.9 % (0-0.5); Lymphocytes Absolute Auto 2.13 K/mm3 (0.9-3.2); Lymphocytes Percent Auto 20.3 % (18.3-44.2); Mean Corpuscular HGB Conc 31.7 g/dl (32-36); Mean Corpuscular Hemoglobin 24.9 pg (26-34); Mean Corpuscular Volume 78.5 fl (80-100); Mean Platelet Volume 12.2 fl (7.4-10.4); Monocytes Absolute Auto 0.8 K/mm3 (0.1-0.6); Monocytes Percent Auto 7.4 % (2.6-8.5); Neutrophils Absolute Auto 7.4 K/mm3 (1.3-6.7); Neutrophils Percent Auto 70.1 % (45.5-73.1); Platelet Count Result 223 k/mm3 (150-375); Red Blood Count 4.42 M/mm3 (4.2-5.4); Red Cell Distribution Width 14.6 % (11.5-14.5); White Blood Count 10.5 K/mm3 (4.5-10.0)
[2021-10-09 07:14] LABS: Alanine Aminotransferase 7 U/L (6-35); Albumin Level 3.3 g/dL (3.5-5.1); Alkaline Phosphatase 227 U/L (38-126); Anion Gap 5 mmol/L (8-16); Aspartate Amino Transferase 17 U/L (14-36); Bilirubin,Total 0.2 mg/dL (0.2-1.3); Blood Urea Nitrogen 6 mg/dL (7-17); Calcium 8.5 mg/dL (8.4-10.2); Carbon Dioxide 22 mmol/L (22-30); Chloride 109 mmol/L (98-107); Estimated CRCL calculation 122 ml/min; Estimated Glomerular Filt Rate > 60; Glucose 73 mg/dL (65-110); Potassium 3.4 mmol/L (3.4-5.0); Sodium 136 mmol/L (137-145); Uric Acid 5.3 mg/dL (2.5-7.5)
--- NOTE | 2021-10-09 08:32 | WPDOBADMIT ---
Obstetrics - Admit Note Admission Note: record reviewed. No pertinent additions to the history and/or any subsequent changes in the physical findings that are not consistent with the expected course of the were found. Additions to the history and/or subsequent changes in the physical findings follow. None.Was scheduled for MIL this am but came in mandi. On arrival, was 6 cm with BBOW. Epidural placed. Now 8/70/-2 AROM with clear fluid. Expectant mgmt. FHTs reactive.
[2021-10-09 09:11] LABS: Rapid Plasma Reagin Non-Reactive (NonReactive)
[2021-10-09] MEDS: OXYTOCIN 30 UNITS/NS 500 ML 30 UNITS/500 ML BAG 999 UNITS IV CONT (09:59)
--- NOTE | 2021-10-09 10:08 | PM.OBPRVD ---
OB - Delivery Note Procedure Delivery date: 10/09/21 Procedure: Delivery augmentation: Rupture of Membranes Delivery monitor: External FHT and External Uterine Route of delivery: Laceration Description: None Specimen: Yes (placenta for meconium ) Quantitative Blood Loss (ml): 150 Anesthesia type: Epidural Disposition: Floor Baby Date of : 10/09/21 Weeks of gestation at delivery: 39 gender: Male presentation: vertex position: Right Occiput Anterior Placenta delivery description: Spontaneous Cord Vessel Description: 3 Vessels and Around Extremity (around right shoulder) Narrative: Apgars not determined when I left the delivery room
--- NOTE | 2021-10-09 10:09 | PM.OBDSVD ---
DS: Admitting Diagnosis Discharge Date 10/10/21 Admitting Diagnosis IUP 39 wks in labor DS: Discharge Diagnosis Discharge Diagnosis (1) (normal spontaneous vaginal delivery): Code(s): O80 - Encounter for full-term uncomplicated delivery Status: Acute OB - DS: Summary OB Procedures : Ultrasound OB Procedures Intrapartum: Spontaneous Vag Delivery OB Procedures: : None Peripartum Data Delivery Method: Natural Vaginal Laceration Description: None complications: none Status at Discharge Functional status at discharge: independent ambulation Overall status at discharge: patient is progressing back to baseline Time Spent with Patient Time attestation: Total time spent providing and/or coordinating discharge services: DS: Data Data Completed and Pending Labs on day of discharge: Labs from last 24 hours 10/09/21 10/09/21 10/09/21 06:47 06:34 06:34 WBC RBC Hgb Hct MCV MCH MCHC RDW Plt Count MPV Immature Gran % (Auto) Neut % (Auto) Lymph % (Auto) [place] % (Auto) Eos % (Auto) Baso % (Auto) Lymph # (Auto) [place] # (Auto) Eos # (Auto) Baso # (Auto) Abs Immat Gran (auto) Absolute Neuts (auto) Absolute Nucleated RBC Nucleated RBC % Sodium 136 L Potassium 3.4 Chloride 109 H Carbon Dioxide 22 Anion Gap 5 L BUN 6 L Creatinine 0.60 L Estim Creat Clear Calc 122 Estimated GFR > 60 Glucose 73 Uric Acid 5.3 Calcium 8.5 Total Bilirubin 0.2 AST 17 ALT 7 Alkaline Phosphatase 227 H Total Protein 7.0 Albumin 3.3 L RPR Non-reactive Blood Type O Positive Antibody Screen Negative 10/09/21 06:34 WBC 10.5 H RBC 4.42 Hgb 11.0 L Hct 34.7 L MCV 78.5 L MCH 24.9 L MCHC 31.7 L RDW 14.6 H Plt Count 223 MPV 12.2 H Immature Gran % (Auto) 0.9 H Neut % (Auto) 70.1 Lymph % (Auto) 20.3 [place] % (Auto) 7.4 Eos % (Auto) 0.6 Baso % (Auto) 0.7 Lymph # (Auto) 2.13 [place] # (Auto) 0.8 H Eos # (Auto) 0.1 Baso # (Auto) 0.1 Abs Immat Gran (auto) 0.09 H Absolute Neuts (auto) 7.4 H Absolute Nucleated RBC 0.0 Nucleated RBC % 0.0 Sodium Potassium Chloride Carbon Dioxide Anion Gap BUN Creatinine Estim Creat Clear Calc Estimated GFR Glucose Uric Acid Calcium Total Bilirubin AST ALT Alkaline Phosphatase Total Protein Albumin RPR Blood Type Antibody Screen Discharge Plan Discharge Attending physician on discharge: Ann Gunter Discharging Clinician: Ann Gunter Patient Disposition: Home, Self-Care Activity: may shower and pelvic rest Diet: regular Patient Instructions: Antibiotic Form Stand Alone Forms: General Discharge Information Follow-up/Referrals: Ann Gunter MD [Physician] - Discharge Medications: Continued trazodone 50 mg tablet 100 mg PO DAILY fluoxetine 20 mg Tablet 40 mg DAILY ergocalciferol (vitamin D2) 1,250 mcg (50,000 unit) capsule 50,000 unit PO WEEKLY ferrous sulfate 27 mg iron Tablet 27 mg PO BID Vitamin 27 mg iron- 800 mcg Tablet 1 tablet DAILY hydroxyzine HCl 25 mg Tablet 25 mg PO BID PRN (Reason: Anxiety) levocetirizine [Xyzal] 5 mg Tablet 5 mg PO DAILY Discontinued metoclopramide HCl [Reglan] 10 mg tablet 10 mg PO Q6H PRN (Reason: nausea and vomiting) Qty: 20 0RF Date of admission: 10/09/21 05:49 Primary Care Provider: Demetria,Sandi De Los Santos Admitting Provider: Ann Gunter Attending physician on admission: Ann Gunter Condition: Stable
[2021-10-09] MEDS: OXYTOCIN 30 UNITS/NS 500 ML 30 UNITS/500 ML BAG 125 UNITS IV CONT (11:20)
--- NOTE | 2021-10-09 12:40 | PC.NURSE ---
Patient transferred to post room #285 via wheelchair. Support person present. Oriented to unit, room, information board, rooming in, admission packet and security measures. Patient verbalizes understanding.
[2021-10-09] MEDS: IBUPROFEN 600 MG TABLET PO ×2 (15:38→21:03)
--- NOTE | 2021-10-09 16:22 | PC.NURSE ---
[id number] Introductions were made, then consulted with patient to assess needs related to . Mother led the conversation with her experience feeding her so far. Mother works well with her . Encouraged understanding of the benefits of skin to skin (unwrapping and placing vertically on her chest), responsive feeding and how to watch for early feeding signs, frequency of feeding on demand about every 8-12 times in 24 hours (every 2-3 hours), milk production, duration of feeding, signs of adequate intake/output and how to record on the feeding sheet. Reviewed positioning and ear, shoulder, hip alignment, supporting the breast, asymmetrical latch (off-center), and leading with the chin with a big open side gape. Infant was latched to the left breast when RN entered the room. Mother states it feels a bit pinchy . Demonstrated how to detach from the breast to protect the nipple from damage, then infant latched optimally to the right breast in football position. After detached 10-15 min later, then mother independently latched to the left breast in football position. Education given to mother of how to visualize suck/swallow ratios and drinking at the breast. Infant was able to maintain latch without discomfort to mother. Nipple care reviewed with optimal latch and good positioning. Reviewed good handwashing when or touching the breast/nipples to prevent infection. Resources used to facilitate learning were used with the visual handouts/ tool/mom and baby guide. Mother voiced understanding of responsive feedings, stimulating with skin to skin, hand expressed colostrum, touch, talking to to encourage if it has been 2 -3 hours since the start of the last , to call if infant does not latch or there is discomfort with . Reported to the primary RN.
[2021-10-09] MEDS: traZODone HCL 50 MG TABLET 100 MG PO (21:03)
[2021-10-10] MEDS: IBUPROFEN 600 MG TABLET PO (04:32)
[2021-10-10 04:40] VITALS: BP 126/74; PULSE 76; RESP 16; TEMP 36.8
[2021-10-10 04:57] LABS: Hematocrit 31.9 % (37.0-47.0); Hemoglobin 10.1 g/dL (12.0-15.0)
--- NOTE | 2021-10-10 07:22 | PM.OBPNVD ---
OB - PN: Subj Subjective Date/time seen: 10/10/21 07:22 Patient comments: no complaints and pain well controlled baby status: doing well OB - PN: Obj Data Labs CBC & Chem 7: 10/10/21 04:21 10/09/21 06:47 Labs: Laboratory Results - last 24 hr 10/09/21 10/09/21 10/10/21 06:34 06:34 04:21 Hgb 10.1 L Hct 31.9 L RPR Non-reactive Blood Type O Positive Antibody Screen Negative OB - PN A/P Plan day: 1 Plan: routine care, discharge home, follow up 6 weeks and other (Plans IUD Liletta) Time Spent With Patient Time: Total time spent is greater than 50% in coordination of care (as documented) at patient's floor/unit and/or counseling patient: Exam : Bimanual exam- vagina & uterus: other (Uterus firm, nt @U)
[2021-10-10 08:10] VITALS: BP 139/83; PULSE 69; RESP 16; TEMP 36.8; O2SAT 98
--- NOTE | 2021-10-10 08:55 | WPDANLDPN2 ---
Anes-Prog Note L&D Date/Time: 10/10/21 08:55 Comfortable throughout: labor and delivery Neuraxial method: epidural Epidural/Spinal procedure site: clean & non-tender Neuro status: Neuro function grossly intact. Cardiovascular status: normal Respiratory status: normal Airway patency: baseline Mental status: baseline Post-Op hydration status: normal Vital Signs: Last Vital Signs Temp 36.8 C 10/10/21 04:40 Pulse 76 10/10/21 04:40 Resp 16 10/10/21 04:40 BP 126/74 10/10/21 04:40 Pulse Ox 99 10/09/21 15:40 O2 Del Method Room Air 10/09/21 19:30 Pain score (VAS): 3 I/O: Intake & Output 10/09/21 10/10/21 10/10/21 23:59 07:59 15:59 Intake Total 1000 Balance 1000 Post-procedural complaints: none Patient feedback: Patient satisfied with anesthetic care.
[2021-10-10] MEDS: FLUoxetine HCL 20 MG CAPSULE 40 MG BY MOUTH (09:27)
[2021-10-10] MEDS: MULTIVIT/MIN/PREN/FOL AC/IRON TABLET 1 TAB PO (09:27)
--- NOTE | 2021-10-10 13:44 | PC.NURSE ---
[id number] Mother led the conversation with her experience and plan to feed her so far and her ability to independently latch optimally without discomfort. Reminded parents to use good handwashing technique to prevent infection. Mother is feeding appropriately for growth of and understands stimulating to eat if needed. Infant has had appropriate feedings in the last 24 hours meets the outcomes for weight, output and jaundice at this time. Mother states she is confident to continue effectively her infant at home or when to call for assistance and denies any additional assistance or education at this time. Reinforced understanding of milk production, transition of milk, signs of adequate intake, prevention/relief of engorgement, responsive after visualizing feeding cues, the different methods of stimulating infant to breastfeed 2-3 hours after the start of the last feeding, community resources, medication information reviewed per [employer] and when to call a provider using the resource of the mom and baby guide/[facility] website. Mother voiced understanding of the education shared. Reported to the primary RN.
[2021-10-11 09:32] VITALS: BP 150/91; PULSE 90; RESP 20; TEMP 37.4; O2SAT 100
== END 2021-10-10 13:14 | disposition home or self-care (01) | DRG 807 ==
LOC: ANHLDR 10:11 → ANHOB2 13:11
PROVIDERS: Admitting Provider Obstetrics & Gynecology Gynecology; PCP Nurse Practitioner Family; Visit Provider Obstetrics & Gynecology Gynecology
DX: O69.2XX0 Labor and delivery complicated by other cord entanglement, with compression, not applicable or unspecified (principal); Z37.0 Single live birth; O77.0 Labor and delivery complicated by meconium in amniotic fluid; O76 Abnormality in fetal heart rate and rhythm complicating labor and delivery; Z3A.39 39 weeks gestation of pregnancy
CPT/HCPCS: 36415; 80053; 84550; 85014; 85018; 85025; 86592; 86850; 86900; 86901; 88307; A9270; J2590; J2795; J7120

== ENCOUNTER 2021-10-11 11:19 | Emergency (ER) | payer BC, SELFPAY ==
--- NOTE | ~2021-10-11 | XR_ITS ---
EXAMINATION: XR chest 2V DATE: 10/11/2021 11:52 INDICATION: Soreness of breath and central chest pain TECHNIQUE: PA and lateral views of the chest were obtained. COMPARISON: Chest radiograph dated 06/29/2019 FINDINGS: The lungs remain clear with no focal airspace opacities, pulmonary edema, pleural effusion or pneumot horax. The cardiomediastinal silhouette is normal. Visualized bones and soft tissues are unremarkable . IMPRESSION: 1. No acute cardiopulmonary disease. Reviewed, dictated and finalized at location A.
--- NOTE | ~2021-10-11 | CT_ITS ---
EXAMINATION: CTA chest PE protocol DATE: 10/11/2021 12:06 INDICATION: Shortness of breath. Chest pain. TECHNIQUE: Computed tomography angiography (CTA) of the chest was performed with 100 mL Omnipaque-350 intravenous contrast timed to evaluate the pulmonary arteries. Coronal maximum intensity projection 3D-reconstructions were created by the technologist. Automated exposure control and iterative reconst ruction technique were employed. The dose-length product was 438.43 mGy-cm. COMPARISON: Chest 2 views 10/11/2021 FINDINGS: The lungs demonstrate minimal atelectasis. There are tiny pleural effusions. The heart size is normal. No pericardial effusion. There is no pulmonary embolus. The bones are unremarkable. IMPRESSION: 1. No pulmonary embolus. Reviewed, dictated and finalized at location B. IMPRESSION: 1. No pulmonary embolus.
[2021-10-11 11:24] VITALS: BP 144/89; PULSE 81; RESP 22; TEMP 36.6; O2SAT 99
--- NOTE | 2021-10-11 11:31 | ECG_ITS ---
Measurements Intervals [place] Rate: 82 P: 36 MO: 136 QRS: 10 QRSD: 89 T: 30 QT: 373 QTc: 437 Interpretive Statements SINUS RHYTHM NORMAL ECG COMPARED TO ECG 07/26/2021 14:24:45 NO SIGNIFICANT CHANGES Electronically Signed On 10-11-2021 12:29:06 CDT by David Delgado M.D.
[2021-10-11 11:33] VITALS: O2SAT 99
[2021-10-11 11:42] LABS: Basophils Absolute Auto 0.1 K/mm3 (0.0-0.1); Basophils Percent Auto 0.5 % (0.2-1.2); Eosinophils Absolute Auto 0.3 K/mm3 (0-0.3); Eosinophils Percent Auto 2.6 % (0-4.4); Hematocrit 33.1 % (37.0-47.0); Hemoglobin 10.5 g/dL (12.0-15.0); Immature Granulocyte Absolute 0.08 K/mm3 (0.00-0.031); Immature Granulocyte Percent A 0.7 % (0-0.5); Lymphocytes Absolute Auto 1.61 K/mm3 (0.9-3.2); Mean Corpuscular HGB Conc 31.7 g/dl (32-36); Mean Corpuscular Hemoglobin 25.2 pg (26-34); Mean Corpuscular Volume 79.6 fl (80-100); Mean Platelet Volume 10.7 fl (7.4-10.4); Monocytes Absolute Auto 0.6 K/mm3 (0.1-0.6); Monocytes Percent Auto 5.1 % (2.6-8.5); Neutrophils Absolute Auto 8.2 K/mm3 (1.3-6.7); Neutrophils Percent Auto 76.1 % (45.5-73.1); Platelet Count Result 266 k/mm3 (150-375); Red Blood Count 4.16 M/mm3 (4.2-5.4); Red Cell Distribution Width 14.9 % (11.5-14.5); White Blood Count 10.7 K/mm3 (4.5-10.0)
--- NOTE | 2021-10-11 11:46 | ED.CHESTPAIN ---
HPI - Chest Pain General Chief Complaint: Chest Pain Stated Complaint: sent from OB, CELAYA/CP/SOB Time Seen by Provider: 10/11/21 11:32 Source: patient Mode of arrival: ambulatory Limitations: no limitations History of Present Illness HPI narrative: 31-year-old female sent down here by OBs office for concerns of possible PE due to chest pain and shortness of breath. Patient had vaginal delivery on 613 without complications. Patient was discharged home yesterday around 1:00. Patient states that she was discharged she had about 3 episodes of chest pain. Chest pain lasting 30 seconds and states it feels like a grinding sensation. Patient during one episode was just sitting there when it happened. Patient states she does have shortness of breath with these episodes, but also is short of breath with sometimes just talking. Patient does endorse a cough but has allergies and has been off of her allergy medications. Patient denies any sore throat, fevers, nausea, vomiting, diarrhea. Patient denies any sick contacts. She denies any relieving factors. States it just ends on its own. Patient does have a history of PTSD, anxiety, depression, and depression. Patient currently on Prozac. Patient's Prozac was increased 1 month ago. Related Data Home Medications Medication Instructions Recorded Confirmed trazodone 50 mg tablet 100 mg PO DAILY 04/11/19 10/09/21 ergocalciferol (vitamin D2) 1,250 50,000 unit PO WEEKLY 08/02/21 10/09/21 mcg (50,000 unit) capsule ferrous sulfate 27 mg iron tablet 27 mg PO BID 08/02/21 10/09/21 fluoxetine 20 mg tablet 40 mg DAILY 08/02/21 10/09/21 vits no.124-ferrous fum 1 tablet DAILY 08/02/21 10/09/21 27 mg iron-folic acid 800 mcg tablet ( Vitamin) hydroxyzine HCl 25 mg tablet 25 mg PO BID PRN Anxiety 09/18/21 10/09/21 levocetirizine 5 mg tablet (Xyzal) 5 mg PO DAILY 10/09/21 10/09/21 Allergies Allergy/AdvReac Type Severity Reaction Status Date / Time Sulfa (Sulfonamide Allergy Hives Verified 04/28/21 11:49 Antibiotics) Review of Systems Review of Systems: CONSTITUTIONAL: Denies fever, chills, or sweats. EYES: Denies visual changes, redness, or discharge. ENT: Denies rhinorrhea, congestion, sore throat, or otalgia. CARDIOVASCULAR: Intermittent chest pain lasting 30 seconds grinding in nature. Denies palpitations, or edema. RESPIRATORY: Dyspnea with chest pain, intermittently on exertion, and intermittently with just talking. Cough due to allergies. GASTROINTESTINAL: Denies abdominal pain, nausea, vomiting, or diarrhea. GENITOURINARY: Denies dysuria or hematuria. SKIN: Denies rash or itching. MUSCULOSKELETAL: Denies back pain, joint pain, or myalgia. NEUROLOGIC: Denies headache, numbness, dizziness, or weakness. PSYCHIATRIC: Denies anxiety or depression. [facility] Past Medical History Medical History History of sleep disturbance Family History Family History Father Hypertension Social History Social History Smoking status: Former smoker Tobacco type: cigarettes Second hand tobacco smoke exposure: No Substance use: never Substance use type: does not use Gender identity (if verbalized by the patient): Female Spiritual care concerns: No Exam Narrative: GENERAL: Well-appearing, well-nourished, and in no acute distress. HEAD: Normocephalic, atraumatic. EYES: PERRLA and EOMI. NECK: Supple. No adenopathy or masses. No carotid bruits or JVD CHEST: Clear to auscultation. No respiratory distress. No wheezes rales or rhonchi HEART: Regular rate and rhythm. No murmur heard. Normal peripheral pulses. ABDOMEN: Soft, nontender, nondistended, normal active bowel sounds. EXTREMITIES: Normal range of motion. No edema. SKIN: Warm, dry, no rash. NEURO: No focal deficits. Alert and oriented x
[2021-10-11 11:52] LABS: Prothrombin Time 12.5 Seconds (11.1-14.7)
[2021-10-11 11:53] LABS: Partial Thromboplastin Time 31.1 SECONDS (22.3-36.8)
[2021-10-11 11:54] LABS: Alanine Aminotransferase 11 U/L (6-35); Albumin Level 3.3 g/dL (3.5-5.1); Alkaline Phosphatase 171 U/L (38-126); Anion Gap 6 mmol/L (8-16); Aspartate Amino Transferase 27 U/L (14-36); Bilirubin,Total < 0.1 mg/dL (0.2-1.3); Blood Urea Nitrogen 5 mg/dL (7-17); Calcium 8.3 mg/dL (8.4-10.2); Carbon Dioxide 25 mmol/L (22-30); Chloride 107 mmol/L (98-107); Estimated CRCL calculation 141 ml/min; Estimated Glomerular Filt Rate > 60; Glucose 103 mg/dL (65-110); Lipase 43 U/L (23-300); Potassium 3.7 mmol/L (3.4-5.0); Sodium 138 mmol/L (137-145)
[2021-10-11 12:05] LABS: Troponin I < 0.012 ng/mL (0.000-0.034)
[2021-10-11 12:52] VITALS: BP 136/82; PULSE 81; RESP 16; O2SAT 99
== END 2021-10-11 12:55 | disposition home or self-care (01) ==
PROVIDERS: Emergency Medicine; Emergency Provider Nurse Practitioner Family; PCP Nurse Practitioner Family
DX: R07.89 Other chest pain (principal); Z87.891 Personal history of nicotine dependence
CPT/HCPCS: 36415; 71046; 71275; 80053; 83690; 84484; 85025; 85610; 85730; 93005; 99283; Q9967

== ENCOUNTER 2021-10-17 00:52 | Emergency (ER) | payer BC, SELFPAY ==
[2021-10-17 00:57] VITALS: BP 170/103; PULSE 83; RESP 18; TEMP 36.6; O2SAT 98
--- NOTE | 2021-10-17 01:41 | ED.GENADULT ---
HPI - General Adult General Chief complaint: Recheck/Abnormal Lab/Rx Stated complaint: anxiety, restless, HTN Time Seen by Provider: 10/17/21 01:08 History of Present Illness HPI narrative: 31-year-old female presented emerged department 1 week complaining of intermittent hypertension. Patient states during her she was having some elevated blood pressures. Patient states she was evaluated the emergency department few days ago and had a full work-up. Patient states that today she did have a headache similar to her previous migraines. Patient did take migraine medication states headache is resolved. Patient states he does have increased anxiety at this time and did take her hydroxyzine with no significant improvement of her anxiety. Patient is declining any additional meds for anxiety due to her breast-feeding. Patient denies any current headache. Patient denies any lower extremity edema. Patient denies any seizure-like activity. Patient is making urine. Related Data Home Medications Medication Instructions Recorded Confirmed trazodone 50 mg tablet 100 mg PO DAILY 04/11/19 10/09/21 ergocalciferol (vitamin D2) 1,250 50,000 unit PO WEEKLY 08/02/21 10/09/21 mcg (50,000 unit) capsule ferrous sulfate 27 mg iron tablet 27 mg PO BID 08/02/21 10/09/21 fluoxetine 20 mg tablet 40 mg DAILY 08/02/21 10/09/21 vits no.124-ferrous fum 1 tablet DAILY 08/02/21 10/09/21 27 mg iron-folic acid 800 mcg tablet ( Vitamin) hydroxyzine HCl 25 mg tablet 25 mg PO BID PRN Anxiety 09/18/21 10/09/21 levocetirizine 5 mg tablet (Xyzal) 5 mg PO DAILY 10/09/21 10/09/21 Allergies Allergy/AdvReac Type Severity Reaction Status Date / Time Sulfa (Sulfonamide Allergy Hives Verified 10/17/21 01:06 Antibiotics) Review of Systems Review of Systems: CONSTITUTIONAL: Denies fever, chills, or sweats. EYES: Denies visual changes, redness, or discharge. ENT: Denies rhinorrhea, congestion, sore throat, or otalgia. CARDIOVASCULAR: Intermittent chest pain, no heart palpitations no lower extremity edema RESPIRATORY: Denies cough or dyspnea. GASTROINTESTINAL: Denies abdominal pain, nausea, vomiting, or diarrhea. GENITOURINARY: Denies dysuria or hematuria. SKIN: Denies rash or itching. MUSCULOSKELETAL: Denies back pain, joint pain, or myalgia. NEUROLOGIC: Headache earlier today, resolved PSYCHIATRIC: Does report baseline depression and anxiety PMFSH Past Medical History Medical History History of sleep disturbance Family History Family History Father Hypertension Social History Social History Smoking status: Former smoker Tobacco type: cigarettes Second hand tobacco smoke exposure: No Substance use: never Substance use type: does not use Gender identity (if verbalized by the patient): Female Spiritual care concerns: No Exam Narrative: APPEARANCE: Well appearing, no pain, no distress, well-nourished. HEAD: normocephalic, atraumatic. EYES: PERRLA/EOMI, conjunctivae clear. NOSE: Normal no drainage THROAT: Pharynx clear, no exudate. NECK: Supple. No adenopathy, no masses. RESPIRATORY: Airway patent, respirations nonlabored. Clear to auscultation bilaterally, no rales, rhonchi, wheezing. CARDIOVASCULAR: Regular rate and rhythm without murmurs rubs or gallops. ABDOMINAL: Soft, nontender, nondistended, normal bowel sounds MUSCULOSKELETAL: Moves all extremities. Strength/ROM intact, No edema, No calf tenderness. NEURO: Alert. Cranial nerves II through XII intact. Grossly intact, no hyperreflexia SKIN: Warm, dry. Normal Color PSYCHIATRIC: Flat affect Course Course Emergency Course: Patient's lactate dehydrogenase is within normal limits. Patient's platelets are slightly elevated. Patient has no proteinuria. Patient's AST and ALT are s
[2021-10-17] MEDS: hydrALAZINE HCL 20 MG/ML VIAL 5 MG IV PUSH (01:45)
[2021-10-17 01:48] LABS: Basophils Absolute Auto 0.1 K/mm3 (0.0-0.1); Basophils Percent Auto 1.1 % (0.2-1.2); Eosinophils Absolute Auto 0.2 K/mm3 (0-0.3); Hematocrit 39.8 % (37.0-47.0); Hemoglobin 12.6 g/dL (12.0-15.0); Immature Granulocyte Absolute 0.04 K/mm3 (0.00-0.031); Immature Granulocyte Percent A 0.4 % (0-0.5); Lymphocytes Absolute Auto 2.52 K/mm3 (0.9-3.2); Lymphocytes Percent Auto 24.7 % (18.3-44.2); Mean Corpuscular HGB Conc 31.7 g/dl (32-36); Monocytes Absolute Auto 0.7 K/mm3 (0.1-0.6); Monocytes Percent Auto 7.2 % (2.6-8.5); Neutrophils Absolute Auto 6.6 K/mm3 (1.3-6.7); Neutrophils Percent Auto 64.6 % (45.5-73.1); Platelet Count Result 529 k/mm3 (150-375); Red Blood Count 5.04 M/mm3 (4.2-5.4); Red Cell Distribution Width 15.9 % (11.5-14.5); White Blood Count 10.2 K/mm3 (4.5-10.0)
[2021-10-17 01:57] LABS: Appearance Urine Clear (Clear); Bilirubin Urine Negative (Negative); Blood Urine 3+ (Negative); Color Urine Yellow (Yellow); Glucose Urine UA Negative (Negative); Ketones Urine Negative (Negative); Leukocyte Esterase Ur 1+ LEU/UL (Negative); Nitrate Urine Negative (Negative); Protein Urine Negative (Negative); Specific Grav Ur 1.025 (1.001-1.035); Urobilinogen Urine 0.2 mg/dL (<2.0); pH Urine 5.5 (5.0-9.0)
[2021-10-17 02:01] LABS: Mucus Urine Rare /lpf; Squamous Epithelial Cell Urine Rare /hpf (Few)
[2021-10-17 02:04] LABS: Lactic Acid Reflex 0.6 mmol/L (0.7-2.0)
[2021-10-17 02:09] LABS: Add Urine Microscopic? YES
[2021-10-17 02:09] LABS: Alanine Aminotransferase 36 U/L (6-35); Albumin Level 4.2 g/dL (3.5-5.1); Alkaline Phosphatase 195 U/L (38-126); Anion Gap 8 mmol/L (8-16); Aspartate Amino Transferase 37 U/L (14-36); Bilirubin,Total 0.2 mg/dL (0.2-1.3); Blood Urea Nitrogen 11 mg/dL (7-17); Calcium 8.7 mg/dL (8.4-10.2); Carbon Dioxide 21 mmol/L (22-30); Chloride 110 mmol/L (98-107); Estimated CRCL calculation 110 ml/min; Estimated Glomerular Filt Rate > 60; Glucose 108 mg/dL (65-110); Potassium 3.8 mmol/L (3.4-5.0); Sodium 139 mmol/L (137-145)
[2021-10-17 02:19] LABS: Lactate Dehydrogenase 454 U/L (313-618)
[2021-10-17 02:21] VITALS: BP 146/86; PULSE 75; RESP 18; O2SAT 98
[2021-10-17 02:56] VITALS: BP 146/71; PULSE 76; RESP 16; O2SAT 97
== END 2021-10-17 02:58 | disposition home or self-care (01) ==
PROVIDERS: Emergency Provider Emergency Medicine; PCP Nurse Practitioner Family
DX: O13.5 Gestational [pregnancy-induced] hypertension without significant proteinuria, complicating the puerperium (principal); O99.345 Other mental disorders complicating the puerperium; F41.9 Anxiety disorder, unspecified; Z87.891 Personal history of nicotine dependence
CPT/HCPCS: 36415; 80053; 81001; 83605; 83615; 85025; 96374; 99284; J0360

== ENCOUNTER 2022-03-29 17:59 | Emergency (ER) | payer BC, SELFPAY ==
[2022-03-29 18:09] VITALS: BP 138/90; PULSE 100; RESP 18; TEMP 36.6; O2SAT 100
--- NOTE | 2022-03-29 18:34 | ED.URI ---
HPI - URI/Sore Throat General Chief Complaint: Upper Respiratory Infection Stated Complaint: Sore Throat,Bilateral Ear Irritation,Body Aches Time Seen by Provider: 03/29/22 18:22 Source: patient Mode of arrival: ambulatory Limitations: no limitations History of Present Illness HPI Narrative: Patient presents today complaining of a 3 day history of sore throat, body aches, chills. Denies fever cough. She currently rates her pain 3/10 and has been taking Tylenol and ibuprofen with mild relief. She is currently . Related Data Home Medications Medication Instructions Recorded Confirmed fluoxetine 20 mg tablet 40 mg DAILY 08/02/21 03/29/22 hydroxyzine HCl 25 mg tablet 25 mg PO BID PRN Anxiety 09/18/21 03/29/22 levocetirizine 5 mg tablet (Xyzal) 5 mg PO DAILY 10/09/21 03/29/22 Allergies Allergy/AdvReac Type Severity Reaction Status Date / Time Sulfa (Sulfonamide Allergy Hives Verified 03/29/22 18:14 Antibiotics) Review of Systems Review of Systems: CONSTITUTIONAL: Denies fever, or sweats.+ Chills, body aches EYES: Denies visual changes, redness, or discharge. ENT: Denies rhinorrhea, congestion, or otalgia.+ sore throat CARDIOVASCULAR: Denies chest pain, palpitations, or edema. RESPIRATORY: Denies cough or dyspnea. GASTROINTESTINAL: Denies abdominal pain, nausea, vomiting, or diarrhea. GENITOURINARY: Denies dysuria or hematuria. SKIN: Denies rash, itching, or wounds. MUSCULOSKELETAL: Denies back pain, joint pain, or myalgia. NEUROLOGIC: Denies headache, numbness, tingling, or weakness. PSYCH: Denies depression or anxiety. [facility] Past Medical History Medical History History of sleep disturbance Family History Family History Father Hypertension Social History Social History Smoking status: Former smoker Tobacco type: cigarettes Second hand tobacco smoke exposure: No Substance use: never Substance use type: does not use Gender identity (if verbalized by the patient): Female Spiritual care concerns: No Comments At time of signature, I have reviewed and agree with nursing past medical, surgical, social and family history unless otherwise noted. Please see nursing chart for further information. There is no relevant family history pertinent to the presenting complaint Exam Narrative: GENERAL: Well-appearing, well-nourished, and in no acute distress. HEAD: Normocephalic, atraumatic. EYES: EOMI. No redness or drainage. Conjunctivae normal. ENT: Mucous membranes pink and moist. Nares clear. No rhinorrhea. TMs normal bilaterally. Throat erythematous without edema or exudate. Uvula midline. NECK: Normal AROM. Supple. bilateral tonsillar lymphadenopathy. CHEST: No respiratory distress. Clear to auscultation. HEART: Regular rate and rhythm. No murmur appreciated. Normal peripheral pulses. EXTREMITIES: Normal range of motion. No edema. SKIN: Warm, dry, no rash. Capillary refill normal. Normal skin turgor. NEURO: No focal deficits. Alert and oriented x3. Gait steady. PSYCH: Normal affect. No signs of depression or anxiety. Course Course Level of Care: Express Care Visit Vital Signs Vital signs: Vital Signs Temperature 97.8 F 03/29/22 18:09 Pulse Rate 100 03/29/22 18:09 Respiratory Rate 18 03/29/22 18:09 Blood Pressure 138/90 03/29/22 18:09 Pulse Oximetry 100 03/29/22 18:09 Oxygen Delivery Room Air 03/29/22 18:09 Temperature 97.8 F 03/29/22 18:09 Pulse Rate 100 03/29/22 18:09 Respiratory Rate 18 03/29/22 18:09 Blood Pressure 138/90 03/29/22 18:09 Pulse Oximetry 100 03/29/22 18:09 Oxygen Delivery Room Air 03/29/22 18:09 Reviewed. Pt has been instructed to follow up with her PCP regarding her elevated blood pressure today. MDM - URI/Sore Throat Differe
== END 2022-03-29 18:42 | disposition home or self-care (01) ==
PROVIDERS: Emergency Provider Nurse Practitioner; PCP Nurse Practitioner Family
DX: J02.0 Streptococcal pharyngitis (principal); Z87.891 Personal history of nicotine dependence
CPT/HCPCS: 87880; 99213; G0463

== ENCOUNTER 2022-06-27 12:15 | Emergency (ER) | payer BC, SELFPAY ==
[2022-06-27 12:34] VITALS: BP 126/85; PULSE 91; RESP 18; TEMP 36.1; O2SAT 96
--- NOTE | 2022-06-27 13:12 | ED.URI ---
HPI - URI/Sore Throat General Chief Complaint: Upper Respiratory Infection Stated Complaint: Cough,Congestion Time Seen by Provider: 06/27/22 13:04 Source: patient Mode of arrival: ambulatory Limitations: no limitations History of Present Illness HPI Narrative: Patient presents today with a one-week history of productive cough that is worse at night, postnasal drip, headache, nasal congestion. She has been taking ibuprofen and [place] Plus with some relief. Denies asthma or COPD. She is a nonsmoker. She is currently . Denies fever or shortness of breath. Denies nausea, vomiting, diarrhea. Related Data Home Medications Medication Instructions Recorded Confirmed fluoxetine 20 mg tablet 40 mg DAILY 08/02/21 06/27/22 levocetirizine 5 mg tablet (Xyzal) 5 mg PO DAILY 10/09/21 06/27/22 Allergies Allergy/AdvReac Type Severity Reaction Status Date / Time Sulfa (Sulfonamide AdvReac Mild Hives Verified 06/27/22 12:43 Antibiotics) Review of Systems Review of Systems: CONSTITUTIONAL: Denies body aches, fever, chills, or sweats. EYES: Denies visual changes, redness, or discharge. ENT: Denies rhinorrhea, sore throat, or otalgia.+ congestion, postnasal drip CARDIOVASCULAR: Denies chest pain, palpitations, or edema. RESPIRATORY: Denies dyspnea.+ cough GASTROINTESTINAL: Denies abdominal pain, nausea, vomiting, or diarrhea. GENITOURINARY: Denies dysuria or hematuria. SKIN: Denies rash, itching, or wounds. MUSCULOSKELETAL: Denies back pain, joint pain, or myalgia. NEUROLOGIC: Denies numbness, tingling, or weakness.+ headache PSYCH: Denies depression or anxiety. [facility] Past Medical History Medical History History of sleep disturbance Family History Family History Father Hypertension Social History Social History Smoking status: Former smoker Tobacco type: cigarettes Second hand tobacco smoke exposure: No Substance use: never Substance use type: does not use Gender identity (if verbalized by the patient): Female Spiritual care concerns: No Comments At time of signature, I have reviewed and agree with nursing past medical, surgical, social and family history unless otherwise noted. Please see nursing chart for further information. There is no relevant family history pertinent to the presenting complaint Exam Narrative: GENERAL: Well-appearing, well-nourished, and in no acute distress. HEAD: Normocephalic, atraumatic. EYES: EOMI. No redness or drainage. Conjunctivae normal. ENT: Mucous membranes pink and moist. Nares mildly congested. No rhinorrhea. TMs normal bilaterally. Throat normal with small amount of white postnasal drainage. Uvula midline. NECK: Normal AROM. Supple. No lymphadenopathy. CHEST: No respiratory distress. Clear to auscultation. Cough not assessed during exam. HEART: Regular rate and rhythm. No murmur appreciated. EXTREMITIES: Normal range of motion. No edema. SKIN: Warm, dry, no rash. Capillary refill normal. Normal skin turgor. NEURO: No focal deficits. Alert and oriented x3. Gait steady. PSYCH: Normal affect. No signs of depression or anxiety. Course Course Level of Care: Express Care Visit Vital Signs Vital signs: Vital Signs Temperature 97.0 F L 06/27/22 12:34 Pulse Rate 91 06/27/22 12:34 Respiratory Rate 18 06/27/22 12:34 Blood Pressure 126/85 06/27/22 12:34 Pulse Oximetry 96 06/27/22 12:34 Oxygen Delivery Room Air 06/27/22 12:34 Temperature 97.0 F L 06/27/22 12:34 Pulse Rate 91 06/27/22 12:34 Respiratory Rate 18 06/27/22 12:34 Blood Pressure 126/85 06/27/22 12:34 Pulse Oximetry 96 06/27/22 12:34 Oxygen Delivery Room Air 06/27/22 12:34 Reviewed. Pt has been instructed to follow up with her PCP regarding her elevated
== END 2022-06-27 13:20 | disposition home or self-care (01) ==
PROVIDERS: Emergency Provider Nurse Practitioner; PCP Physician Assistant
DX: J40 Bronchitis, not specified as acute or chronic (principal); J06.9 Acute upper respiratory infection, unspecified; Z87.891 Personal history of nicotine dependence
CPT/HCPCS: 99213; G0463

== ENCOUNTER 2022-08-20 12:31 | Outpatient (CLI) | payer BC, SELFPAY ==
--- NOTE | 2022-08-20 | ECG_ITS ---
Measurements Intervals [place] Rate: 88 P: 43 KS: 142 QRS: 46 QRSD: 89 T: 51 QT: 369 QTc: 448 Interpretive Statements SINUS RHYTHM COMPARED TO ECG 10/11/2021 11:32:07 NO SIGNIFICANT CHANGES Electronically Signed On 08-21-2022 13:56:16 CDT by Miles Mittal M.D.
[2022-08-20 13:13] LABS: Basophils Absolute Auto 0.1 K/mm3 (0.0-0.1); Basophils Percent Auto 0.8 % (0.2-1.2); Eosinophils Absolute Auto 0.3 K/mm3 (0-0.3); Eosinophils Percent Auto 3.1 % (0-4.4); Hematocrit 44.6 % (37.0-47.0); Hemoglobin 14.7 g/dL (12.0-15.0); Immature Granulocyte Absolute 0.04 K/mm3 (0.00-0.031); Immature Granulocyte Percent A 0.4 % (0-0.5); Lymphocytes Absolute Auto 2.11 K/mm3 (0.9-3.2); Lymphocytes Percent Auto 22.1 % (18.3-44.2); Mean Corpuscular Hemoglobin 27.7 pg (26-34); Mean Corpuscular Volume 84.2 fl (80-100); Mean Platelet Volume 8.4 fl (7.4-10.4); Monocytes Absolute Auto 0.4 K/mm3 (0.1-0.6); Monocytes Percent Auto 4.6 % (2.6-8.5); Neutrophils Absolute Auto 6.6 K/mm3 (1.3-6.7); Platelet Count Result 398 k/mm3 (150-375); Red Cell Distribution Width 13.3 % (11.5-14.5); White Blood Count 9.6 K/mm3 (4.5-10.0)
[2022-08-20 13:20] LABS: Hemoglobin A1C 4.8 % (<5.7)
[2022-08-20 13:23] LABS: Alanine Aminotransferase 25 U/L (6-35); Albumin Level 4.8 g/dL (3.5-5.1); Alkaline Phosphatase 153 U/L (38-126); Anion Gap 8 mmol/L (8-16); Aspartate Amino Transferase 19 U/L (14-36); Bilirubin,Total 0.9 mg/dL (0.2-1.3); Blood Urea Nitrogen 10 mg/dL (7-17); Calcium 9.2 mg/dL (8.4-10.2); Carbon Dioxide 25 mmol/L (22-30); Chloride 105 mmol/L (98-107); Cholesterol 207 mg/dL (0-200); Estimated Glomerular Filt Rate > 60; Glucose 90 mg/dL (65-110); HDL Direct 54 mg/dL; Potassium 4.1 mmol/L (3.4-5.0); Sodium 138 mmol/L (137-145); Triglycerides 95 mg/dL (<150)
[2022-08-20 13:25] LABS: Iron 142 ug/dL (37-170)
[2022-08-20 13:34] LABS: LDL Cholesterol Direct 121 mg/dL; Percent Iron Saturation 43 % (20-50)
[2022-08-20 13:42] LABS: Free T4 Free Thyroxine 1.03 ng/mL (0.78-2.19)
[2022-08-20 13:52] LABS: Thyroid Stimulating Hormone 0.856 uIU/mL (0.465-4.680)
== END 2022-08-20 12:32 | disposition home or self-care (01) ==
LOC: ANHLAB 12:33
PROVIDERS: PCP Physician Assistant; Visit Provider Physician Assistant
DX: Z13.1 Encounter for screening for diabetes mellitus (principal); Z13.29 Encounter for screening for other suspected endocrine disorder; Z13.220 Encounter for screening for lipoid disorders; Z13.0 Encounter for screening for diseases of the blood and blood-forming organs and certain disorders involving the immune mechanism
CPT/HCPCS: 36415; 80053; 80061; 83036; 83540; 83550; 84439; 84443; 85025; 93005

== ENCOUNTER 2022-09-12 17:10 | Emergency (ER) | payer BC, SELFPAY ==
--- NOTE | 2022-09-12 17:14 | ED.URI ---
HPI - URI/Sore Throat General Chief Complaint: Upper Respiratory Infection Stated Complaint: congestion Time Seen by Provider: 09/12/22 17:14 Source: patient Mode of arrival: ambulatory Limitations: no limitations History of Present Illness HPI Narrative: Patient is a 32-year-old female who presents with sinus congestion, sinus pressure and ear pain that is worsening the last 3 days. Patient states symptoms started 10 days ago. Was seen on the 8th and given prednisone for 5 days. Patient has tried [id number] medicine for cold and flu long with Flonase with mild to no relief. Patient states she has had a headache due to sinus pressure that will not go away. Denies any fever, chills, nausea, vomiting, diarrhea. Son was recently ill diagnosed with croup. Related Data Home Medications Medication Instructions Recorded Confirmed fluoxetine 20 mg tablet 40 mg DAILY 08/02/21 09/12/22 sumatriptan succinate 100 mg tablet 100 mg PO DAILY 09/12/22 09/12/22 Allergies Allergy/AdvReac Type Severity Reaction Status Date / Time Sulfa (Sulfonamide AdvReac Mild Hives Verified 09/12/22 17:25 Antibiotics) Review of Systems Review of Systems: All systems reviewed & are unremarkable except as noted in HPI and below Constitutional: Constitutional: Denies body ache(s), Denies chills, Denies fatigue, Denies fever(s), Reports headache(s), Denies malaise and Denies weakness Eyes: Eyes: Denies blurry vision, Denies itchy eyes and Denies loss of vision ENT: Reports otalgia, Reports headache(s), Reports nasal congestion, Reports nasal discharge, Reports sinus pain, Reports sinus pressure and Denies sore throat Cardiovascular: Cardiovascular: Denies chest pain, Denies irregular heart rhythm and Denies dyspnea Respiratory: Respiratory: Reports cough and Denies dyspnea Gastrointestinal: Gastrointestinal: Denies abdominal pain, Denies diarrhea, Denies nausea and Denies vomiting Musculoskeletal: Musculoskeletal: Denies back pain, Denies myalgias and Denies arthralgias Integumentary/Breasts: Skin/Breast: Denies pruritus and Denies rash Neurologic: Denies headache(s), Denies loss of vision and Denies weakness Psychiatric: Psychiatric: Reports no additional psychiatric complaints Endocrine: Endocrine: Denies fatigue Allergic/Immunologic: Allergic/Immunologic: Denies itchy eyes PMFSH Past Medical History Medical History History of sleep disturbance Family History Family History Father Hypertension Social History Social History Smoking status: Former smoker Tobacco type: cigarettes Second hand tobacco smoke exposure: No Substance use: never Substance use type: does not use Gender identity (if verbalized by the patient): Female Spiritual care concerns: No Comments At time of signature, agree with nursing past medical, surgical, social and family history. There is no relevant family history pertinent to the presenting complaint. Exam Const: General: cooperative, healthy appearing, comfortable, no acute distress and well nourished Nutritional Appearance: well nourished Orientation/consciousness: patient oriented x3 Limitations: no limitations HENMT: Head: normal to inspection, normocephalic and atraumatic Ears: hearing grossly normal bilaterally, external ears normal, TM's normal bilaterally, EAC's normal and no periauricular adenopathy Face/Nose/Sinus: Normal external nose present, Abnormal mucous membranes and turbinates present erythematous bilateral and diffuse, normal facial exam, face symmetric and Facial tenderness on exam of face and sinuses Face and sinus: normal facial exam and face symmetric Mouth: Yes Normal oral and palatal mucosa present, Yes lip normal, Yes tongue normal, Yes Normal salivary glands and ducts present,
[2022-09-12 17:23] VITALS: BP 143/92; PULSE 115; RESP 20; TEMP 36.2; O2SAT 99
== END 2022-09-12 17:30 | disposition home or self-care (01) ==
PROVIDERS: Emergency Provider Nurse Practitioner Family; PCP Nurse Practitioner Family
DX: J01.10 Acute frontal sinusitis, unspecified (principal); Z87.891 Personal history of nicotine dependence
CPT/HCPCS: 99213; G0463

== ENCOUNTER 2023-08-01 09:09 | Emergency (ER) | payer BC, SELFPAY ==
--- NOTE | ~2023-08-01 | XR_ITS ---
EXAMINATION: XR ankle RT min 3V DATE: 08/01/2023 09:31 INDICATION: Right ankle injury and pain. TECHNIQUE: 4 views of right ankle were obtained. COMPARISON: None. FINDINGS: Bone alignment is normal. No fracture. Joint spaces are normal. IMPRESSION: 1. No fracture. Reviewed, dictated and finalized at location A. IMPRESSION: 1. No fracture.
--- NOTE | ~2023-08-01 | XR_ITS ---
AP and lateral views of the right tibia/fibula Clinical History: Trauma Findings: No acute fracture or dislocation is seen. Osseous alignment is anatomic. Joint spaces are p reserved without significant erosive or degenerative change. Soft tissues are unremarkable. Impression: Unremarkable right tib-fib radiographs. Reviewed, dictated and finalized at [facility]. Impression: Unremarkable right tib-fib radiographs.
--- NOTE | 2023-08-01 09:48 | ED.LOWEXIN ---
HPI - Extremity Injury (Lower) General Chief Complaint: Extremity Injury, Lower Stated Complaint: ankle injury Time Seen by Provider: 08/01/23 09:22 Source: patient Mode of arrival: ambulatory Limitations: no limitations History of Present Illness HPI Narrative: Patient is a 33-year-old female who presents the ED with report of right lower extremity pain. Patient reports she was at a trampoline park yesterday and jumped feet 1st into the foam pit, hitting the concrete underneath. She complains of pain to her right anterior and medial ankle, right lateral calf. Has been ambulatory, but has pain with this. Took Tylenol and ibuprofen overnight. Denies numbness or tingling. Denies any other injuries. Related Data Home Medications Medication Instructions Recorded Confirmed fluoxetine 20 mg tablet 40 mg DAILY 08/02/21 09/12/22 sumatriptan succinate 100 mg tablet 100 mg PO DAILY 09/12/22 09/12/22 Allergies Allergy/AdvReac Type Severity Reaction Status Date / Time Sulfa (Sulfonamide AdvReac Mild Hives Verified 09/12/22 17:25 Antibiotics) Review of Systems Review of Systems: CONSTITUTIONAL: Denies fever, chills, or sweats. MUSCULOSKELETAL: See HPI. NEUROLOGIC: Denies headache, dizziness, numbness, or weakness. All systems reviewed & are unremarkable except as noted in HPI and below PMFSH Past Medical History Medical History History of sleep disturbance Family History Family History Father Hypertension Social History Social History Smoking status: Former smoker Tobacco type: cigarettes Second hand tobacco smoke exposure: No Substance use: never Substance use type: does not use Gender identity (if verbalized by the patient): Female Spiritual care concerns: No Exam Narrative: GENERAL: Well appearing, obese w/ bmi of 37.5, non-toxic, in no acute distress. HEAD: Normocephalic, atraumatic. RESPIRATORY: Airway patent, respirations nonlabored. CARDIOVASCULAR: Regular rate and rhythm. Pedal pulses 2+ and easily palpable. MUSCULOSKELETAL: Moves all extremities. No gross deformities. TTP over medial malleoli of right ankle, extending into anterior ankle joint. Mild tenderness to palpation throughout mid lateral travis/calf. No palpable bony deformities. No significant swelling noted. No pitting edema. SKIN: Warm, dry, normal color. NEURO: A&O X3. Speech clear. PSYCHIATRIC: Appropriate mood and affect. Normal interaction. MDM - Extremity Injury (Lower) MDM Narrative Medical decision making narrative: Patient?s injury is consistent with musculoskeletal etiology. No signs of neurologic or vascular compromise on physical examination. Compartments are soft without signs of compartment syndrome. XR right ankle, right tibia/fibula without acute osseous abnormality. Pain is consistent with musculoskeletal strain. Patient is felt to be stable for discharge home and further outpatient management and treatment. Discussed rice treatment, continue Tylenol and ibuprofen as needed for pain. Given return precautions. Discharged in stable condition. Medical Records Attestation: I reviewed the patient's medical records. Imaging Data Attestation: I personally reviewed and interpreted this imaging study as follows: Radiologist's impression: ITS Impressions Ankle X-Ray 08/01/23 09:32 IMPRESSION: 1. No fracture. Tibia/Fibula X-Ray 08/01/23 09:56 Impression: Unremarkable right tib-fib radiographs. Discharge Plan Discharge Clinical Impression: Sprain of right ankle Qualifiers: Encounter type: initial encounter Involved ligament of ankle: unspecified ligament Qualified Code(s): S93.401A - Sprain of unspecified ligament of right ankle, initial encounter Contusion of right lower leg Qualifiers:
[2023-08-01] MEDS: KETOROLAC (*BKC) 60 MG/2 ML VIAL IM (09:54)
== END 2023-08-01 10:24 | disposition home or self-care (01) ==
LOC: ANHED 10:11
PROVIDERS: Emergency Provider Physician Assistant; PCP Nurse Practitioner Family
DX: S93.401A Sprain of unspecified ligament of right ankle, initial encounter (principal); S80.11XA Contusion of right lower leg, initial encounter; G47.9 Sleep disorder, unspecified; Z87.891 Personal history of nicotine dependence; W17.89XA Other fall from one level to another, initial encounter
CPT/HCPCS: 73590; 73610; 96372; 99284; J1885

== ENCOUNTER 2025-03-21 12:06 | Emergency (ER) | payer OTHER, SELFPAY ==
--- NOTE | ~2025-03-21 | CT_ITS ---
EXAMINATION: CT brain wo con COMPARISON: None HISTORY: Fall with Head Injury TECHNIQUE: Axial images were obtained through the brain without IV contrast. CT scan performed using dose optimization techniques including the following automated exposure control; adjustment of mA and/or kV; use of iterative reconstruction technique. Automatic exposure control was used to reduce radiation dose. Permanent radiation dose record is archived to PACS. FINDINGS: No acute infarct or parenchymal hemorrhage. No abnormal mass or mass effect. No midline shift. No extra-axial fluid collections. No hydrocephalus. . Mastoid air cells unremarkable. Sinuses and orbits unremarkable. No acute fracture. No significant facial or scalp soft tissue swelling evident. No radiopaque foreign body is seen. Impression: 1.No acute intracranial abnormality. Reviewed, dictated and finalized at location P. IZATION SPECIALIST Impression: 1.No acute intracranial abnormality.
--- NOTE | ~2025-03-21 | CT_ITS ---
CT CERVICAL SPINE WITHOUT CONTRAST CLINICAL HISTORY: Fall with Head Injury Technique: Axial images thoracic inlet to skull base Sagittal and coronal reformats. No contrast CT images acquired with automatic exposure control for dose reduction DLP: 453 mGy-cm Comparison: None Findings: No acute fracture. Trace anterolisthesis C2 on 3, C3 on 4, C4 on 5. Straightening of normal cervical lordosis.. No significant degenerative changes. Disc spaces maintained. Prevertebral soft tissues within normal limits. Visualized lung apices: Clear. Visualized thyroid: Unremarkable. No enlarged cervical nodes. IMPRESSION: 1. No acute findings. Reviewed, dictated and finalized at location R. ING MACHINE OPERATOR GEAR IMPRESSION: 1. No acute findings.
[2025-03-21 12:09] VITALS: BP 117/82; PULSE 82; RESP 18; TEMP 36.1; O2SAT 99
--- NOTE | 2025-03-21 12:55 | ED.HEATRA ---
HPI - Head Injury General Chief complaint: Head Injury Stated complaint: Head injury Time Seen by Provider: 03/21/25 12:48 Source: patient Mode of arrival: ambulatory Limitations: no limitations History of Present Illness HPI Narrative: 34 years old, roller skating, fell backward struck the back of head on the floor, questionable loss of consciousness. She denies nausea, vomiting, laceration ago through, back pain or other injuries. Patient had helmet on at that time. Related Data Home Medications ?Medication ?Instructions ?Recorded ?Confirmed ?Last Taken ?Type fluoxetine 20 mg tablet 40 mg DAILY 08/02/21 09/12/22 10/08/21 22:00 History sumatriptan succinate 100 mg tablet 100 mg PO DAILY 09/12/22 09/12/22 Unknown History Allergies Allergy/AdvReac Type Severity Reaction Status Date / Time Sulfa (Sulfonamide AdvReac Mild Hives Verified 03/21/25 12:06 Antibiotics) Review of Systems Review of Systems: All systems reviewed & are unremarkable except as noted in HPI and below PMFSH Past Medical History Medical History History of sleep disturbance Family History Family History Father Hypertension Social History Social History Smoking status: Former smoker Tobacco type: cigarettes Second hand tobacco smoke exposure: No Substance use: never Substance use type: does not use Gender identity (if verbalized by the patient): Female Spiritual care concerns: No Exam Narrative: General appearance: Well-developed, well-nourished Skin: Normal color Head: Normocephalic, nontraumatic, no hematoma, slight tenderness at the occipital area Eyes: Clear conjunctiva ENT: Oropharynx normal, ears normal, nose normal Neck: Supple, nontender Chest and respiratory: Airway patent, no respiratory distress, no accessory muscle use Heart: Regular rate/rhythm Abdomen: Soft, nontender, no organomegaly, quiet bowel sounds Vascular: Normal peripheral pulses, normal capillary refill. 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, no gross motor deficit Course Vital Signs Vital signs: Vital Signs Temperature 36.1 C L 03/21/25 12:09 Pulse Rate 82 03/21/25 12:09 Respiratory Rate 18 03/21/25 12:09 Blood Pressure 117/82 03/21/25 12:09 Pulse Oximetry 99 03/21/25 12:09 Oxygen Delivery Room Air 03/21/25 12:09 Temperature 36.1 C L 03/21/25 12:09 Pulse Rate 82 03/21/25 12:09 Respiratory Rate 18 03/21/25 12:09 Blood Pressure 117/82 03/21/25 12:09 Pulse Oximetry 99 03/21/25 12:09 Oxygen Delivery Room Air 03/21/25 12:09 MDM - Head Injury MDM Narrative Medical decision making narrative: Closed head injury CT head without contrast showed no acute abnormality CT cervical spine without contrast showed no acute abnormality Diagnosis closed head injury concussion Discharge home on Tylenol, ibuprofen as needed The pt was discharged to home.the pt,s condition upon discharge was fair,education was provided to the pt in reference to the final impression,discharge study results,treatment,prognosis and need for follow up . Differential Diagnosis Differential diagnosis: Likely other (As above) Imaging Data Radiologist's impression: Impressions Cervical Spine CT 03/21/25 12:51 IMPRESSION: 1. No acute findings. Head CT 03/21/25 14:23 Impression: 1.No acute intracranial abnormality. Critical Care Time Critical Care Time Critical Care Time: No Discharge Plan Discharge Clinical Impression: Concussion, Closed head injury Patient Disposition: Home Condition: Stable Instructions: Concussion (ED), Head Injury (ED) Additional Instructions: Return if symptoms are worsening , call your family physician for appointment, take Tylenol as as needed for aches and pain, continue home medications. Patient Language: Lao Prescriptions: No Action sumatriptan succinate 100 mg tablet 100 mg PO DAILY amoxicillin-pot clavulanate 875-125 mg tablet 1 tablet PO Q12H 7 Days Qty: 14 0RF fluoxetine 20 mg Tablet 40 mg DAILY Follow-up/Referrals: Sandi Augustin APRN [Advanced Practice Nurse, Family Practice]
--- OUTSIDE RECORDS SUMMARY | 2025-03-21 13:00 | XMS_ITS | Continuity of Care Document ---
Author Organization [facility] Simone Address [address] [place] [address] Care Team Providers Care Belt Puncher Name Role Phone [facility] (LAB) Primary Ca re Provider Assessment No assessment recorded. Plan of Treatment Reminders Order Date Submit Date Provider Last Modified By Organization Details Last Modified Time Details Appointments None recorded. Lab vitamin D3, 25-hydroxy, serum [address] (Lab), [address] [place], [address], 5 08:11:34 vitamin B12 + folate, serum or blood [address] (Lab), [address] [place], [address], 5 08:11:34 CBC w/ auto diff [address] (Lab), [address] [place], [address], 5 08:11:33 lipid panel, serum [address] (Lab), [address] [place], [address], 5 08:11:33 CMP, serum or plasma [address] (Lab), [address] [place], [address], 5 08:11:33 glycohemogl obin, total, blood [address] (Lab), [address] [place], [address], 5 08:11:34 TSH, serum or plasma [address] (Lab), [address] [place], [address], 5 08:11:34 Referral None recorded. Procedures None recorded. Surgeries None recorded. Imaging None recorded. Medication Orders propranolol 20 mg tablet 2024 025 [facility] [address], [address] [place] [address], [address], 5 16:17:23 Qulipta 30 mg tablet 2024 025 [facility], [address] [place], [address], 5 16:17:24 Ubrelvy 100 mg tablet 2024 025 [facility] [address], [address] [place], [address], 5 16:17:22 Patient TargetsNo targets recorded. Patient InstructionsNo instructions recorded. Reason for Referral None Reported. Problems Name Problem SNOMED Code Status Onset Date Resolution Date Notes Provider Name and Address Organization Details Recorded Time Insomnia 067012090 Active 2018 Not Available [facility] 3 04:49:49 Excessive cerumen in ear canal 819805980 Active 2019 Not Available [facility] 3 04:49:49 Pain of right hip joint 66161581885 9102 Completed 201910/22/2023 SABRINA Garcia [address], [address], [place], [address] , [employer] [facility] 4 15:32:01 Depressiv e disorder 40262518 Active 2019 Not Available [facility] 3 04:49:49 Overactiv e urinary bladder 870071707 Active 2019 Not Available [facility] 3 04:49:49 Anxiety 68406487 Active 2019 Not Available [facility] 3 04:49:49 COVID-19 571771660 Completed 201910/22/2023 SABRINA Garcia [address], [address], [place], [address] , [employer] [facility] 4 15:32:33 [id number] Completed 202010/22/2023 SABRINA Garcia [address], [address], [place], [address] , [employer] 4 15:32:05 Abnormal heart beat 193789239 Active 2022 Sandi Augustin NP [address], [address], [place], [address] , [employer] [facility] [employer] [facility] [employer] [facility] 3 14:25:59 Upper respirato ry infection 36680097 Completed 202210/22/2023 SABRINA Garcia [address], [address], [place], [address] , [employer] [facility] 4 15:32:24 Migraine with aura 9649258 Active 2023 SABRINA Garcia [address], [address], [place], [address] , [employer] [facility] 5 16:21:06 Pain of right knee joint 65541997466 4100 Active 2023 SABRINA Garcia [address], [address], [place], [address] , [employer] [facility] 4 16:23:40 Muscle spasm of cervical muscle of neck 54632297882 4 Active 2023 SABRINA Garcia [address] [facility], [address], [place], [address] , [employer] [facility] [facility] [employer] [facility] 4 16:14:03 Cough 33165361 Active 2024 SABRINA Garcia [address] [facility], [address], [place], [address] , [employer] [facility] [employer] [facility] [employer] [facility] 5 17:05:49 Viral upper respirato ry tract infection 504075817 Active 2024 SABRINA Garcia [address] [facility], [place] [address], [place], [address] , [employer] [facility] [facility] [employer] [facility] 5 17:05:56 Sore throat 107817151 Active 2024 SABRINA Garcia [address] [facility], [place] [address], [place], [address] , [employer] [facility] [employer] [facility] [facility] [employer] [facility] 5 17:06:44 Herpes simplex 18342529 Active 2024 SABRINA Garcia [address], [place] [address], [place], [address] , [facility] [employer] [facility] 5 11:58:02 Essential tremor 592369602 Active 2024 SABRINA Garcia [address] [employer], [place] [address], [place], [address] , [facility] [employer] [facility] [employer] [facility] [facility] [employer] [facility] 5 16:09:52 Problem Notes None recorded. Procedures Surgical History Date Name Laterality Status Provider Name and Address Organization Details Recorded Time 2 Date of Last Pap Smear completed Sandi Roger RN [facility] [employer] [facility] 08/17/2022 14:18:02 Eye Surgery completed Not Available [facility] 06/27/2022 04:42:30 Imaging Results None recorded. Procedure Notes None recorded. Medical Equipment None Reported. Allergies Allergen ID Allergen Name Allergen Category Reaction Reaction Severity Criticality Documentation Date Start Date Code Code System Note Provider Name and Address Organization Details Recorded Time 7339 Substance with sulfonami de structure and antibacte rial mechanism of action (substanc e) medicatio n hives Not available Not available 06/27/2022 54618 8003 SNOMED Not Available [facility] 3 04:59:54 Medications Name Sig Start Date Stop Date Status Note LastModified by Organization Details LastModified Time fluoxetin e 40 mg capsule TAKE 1 CAPSULE BY MOUTH ONCE DAILY active Not Available Not Available No t Available cyclobenz aprine 10 mg tablet Take 1 tablet 3 times a day by oral route as needed for 10 days. 01/19 completed Not Available Not Available Not Available amoxicill in 500 mg capsule TAKE 1 CAPSULE BY MOUTH EVERY 12 HOURS FOR 10 DAYS 04/17 completed Not Available Not Available Not Available buspirone 5 mg tablet 1 tab po bid with breakfas t and lunch. 02/17 completed Not Available Not Available Not Available acetamino phen 325 mg tablet 01/21 completed Not Available Not Available Not Available prednison e 10 mg tablet TAKE 3 TABLETS BY MOUTH DAILY FOR 5 DAYS 08/17 completed Not Available Not Available Not Available Vitamin B-6 25 mg tablet TAKE 1 TABLET BY MOUTH FOUR TIMES DAILY 04/17 completed Not Available Not Available Not Available trazodone 50 mg tablet TAKE 1/2 TO 1 TABLET BY MOUTH EVERY NIGHT AT BEDTIME 04/17 completed Not Available Not Available Not Available azithromy jennifer 250 mg tablet TAKE 2 TABLETS (500 MG) BY ORAL ROUTE ONCE DAILY FOR 1 DAY THEN 1 TABLET (250 MG) BY ORAL ROUTE ONCE DAILY FOR 4 DAYS active Not Available Not Available No t Available benzonata te 200 mg capsule TAKE 1 CAPSULE BY MOUTH THREE TIMES DAILY NEEDED FOR 14 DAYS 01/19 completed Not Available Not Available Not Available sumatript an 100 mg tablet TAKE 1 TABLET BY MOUTH EVERY DAY NEEDED 10/21 completed Not Available Not Available Not Available ondansetr on HCl 4 mg tablet TAKE 1 TABLET BY MOUTH EVERY 6 HOURS NEEDED 04/17 completed Not Available Not Available Not Available rizatript an 10 mg tablet Take as directed 10/23 completed Not Available Not Available Not Available sumatript an 50 mg tablet TAKE 1 TABLET BY MOUTH ONCE. MAY REPEAT ONCE AFTER 2 HOURS IF MIGRAINE PERSISTS 04/16 completed Not Available Not Available Not Available penicilli n V potassium 500 mg tablet 07/13 completed Not Available Not Available Not Available sulfameth oxazole 800 mg-trimet hoprim 160 mg tablet TAKE 1 TABLET BY MOUTH EVERY 12 HOURS 02/17 completed Not Available Not Available Not Available amoxicill in 500 mg tablet Take 1 tablet every 8 hours by oral route for 7 days. 08/17 completed Not Available Not Available Not Available meloxicam 7.5 mg tablet TAKE 1 TABLET BY MOUTH ONCE DAILY NEEDED 01/19 completed Not Available Not Available Not Available famotidin e 20 mg tablet 01/21 completed Not Available Not Available Not Available trazodone 100 mg tablet TAKE 1 TABLET BY MOUTH ONCE DAILY AT BEDTIME active Not Available Not Available No t Available ciproflox acin 0.3 % eye drops INSTILL 1 DROP INTO AFFECTED EYE(S) BY OPHTHALM IC ROUTE EVERY 2 HOURSWHI LE AWAKE FOR 2 DAYS THEN 1 DROP EVERY 4 HRS WHILE AWAKE FOR 5 DAYS active Not Available Not Available No t Available amitripty line 10 mg tablet TAKE 1 TABLET BY MOUTH ONCE DAILY DIRECTED 01/19 completed Not Available Not Available Not Available benzonata te 100 mg capsule TK 1 C PO TID PRF COUGH 01/21 completed Not Available Not Available Not Available triamcino lone acetonide 40 mg/mL suspensio n for injection Take 1 mL every day by injectio n route as directed for 1 day. 05/28 completed Not Available Not Available Not Available cephalexi n 500 mg capsule TAKE 1 CAPSULE BY MOUTH TWICE DAILY FOR 10 DAYS 04/17 completed Not Available Not Available Not Available oseltamiv ir 75 mg capsule 07/13 completed Not Available Not Available Not Available fluoxetin e 10 mg capsule TAKE 1 CAPSULE BY MOUTH EVERY DAY active Not Available Not Available No t Available hydroxyzi ne HCl 25 mg tablet TAKE 1 TABLET BY MOUTH EVERY 6 HOURS NEEDED 04/17 completed Not Available Not Available Not Available ergocalci ferol (vitamin D2) 1,250 mcg (50,000 unit) capsule TAKE ONE CAPSULE BY MOUTH EVERY WEEK DIRECTED 04/17 completed Not Available Not Available Not Available ibuprofen 600 mg tablet TK 1 T PO Q 6 H FEV OR PAIN 05/15 completed Not Available Not Available Not Available methylpre dnisolone 4 mg tablets in a dose pack TAKE BY MOUTH DIRECTED ON INSIDE OF PACKAGE 01/19 completed Not Available Not Available Not Available propranol ol 20 mg tablet TAKE 1 TABLET BY MOUTH TWICE DAILY DIRECTED 2024 active Not Available Not Available Not Avai lable oxybutyni n chloride 5 mg tablet TAKE 1 TABLET BY MOUTH TWICE DAILY 04/17 completed Not Available Not Available Not Available ondansetr on 4 mg disintegr ating tablet Place 1 tablet every 6-8 hours by translin gual route as needed. active PRN nausea/v omiting Not Available Not Available Not Available fluoxetin e 20 mg capsule TAKE 1 CAPSULE BY MOUTH DAILY WITH 40MG CAPSULE 04/17 completed Not Available Not Available Not Available Unisom (doxylami ne) 25 mg tablet Take 0.5 tablets 4 times a day by oral route. 04/17 completed Not Available Not Available Not Available metoclopr amide 10 mg tablet TAKE ONE TABLET BY MOUTH EVERY 6 HOURS NEEDED 04/17 completed Not Available Not Available Not Available amoxicill in 875 mg-potass ium clavulana te 125 mg tablet TAKE 1 TABLET BY MOUTH EVERY 12 HOURS FOR 7 DAYS 10/21 completed Not Available Not Available Not Available escitalop aren 10 mg tablet Take 1 tablet every day by oral route. active stop fluoxeti ne; wait 7 days, then start this medicati on Not Available Not Available Not Available moxifloxa jennifer 0.5 % eye drops INSTILL 2 DROPS IN THE RIGHT EYE EVERY 2 HOURS FOR 2 DAYS, THEN 1 DROP EVERY 6 HOURS FOR 5 DAYS 04/16 completed Not Available Not Available Not Available ProAir HFA 90 mcg/actua tion aerosol inhaler 01/21 completed Not Available Not Available Not Available Symbicort 160 mcg-4.5 mcg/actua tion HFA aerosol inhaler Inhale 2 puffs twice a day by inhalati on route. 05/18 completed Not Available Not Available Not Available Myrbetriq 25 mg tablet,ex tended release TAKE 1 TABLET BY MOUTH EVERY DAY 06/29 completed Not Available Not Available Not Available Virtussin AC 10 mg-100 mg/5 mL oral liquid TK 10 ML PO 6 TIMES A DAY FOR 5 DAYS 09/22 completed Not Available Not Available Not Available riboflavi n (vitamin B2) 400 mg tablet Take 1 tablet every day by oral route. 04/17 completed Not Available Not Available Not Available Simpesse 0.15 mg-30 mcg (84)/10 mcg(7) tablets,3 month dose pack TK 1 T PO QD 02/17 completed Not Available Not Available Not Available Ubrelvy 100 mg tablet Take by oral route for 30 days. active Not Available Not Available No t Available Nurtec ODT 75 mg disintegr ating tablet Take by oral route for 8 days. 01/19 completed Not Available Not Available Not Available Qulipta 30 mg tablet TAKE 1 TABLET BY MOUTH ONCE DAILY DIRECTED 2024 active Not Available Not Available Not Avai lable Vitals Date Recorded Body height Body mass index (BMI) Body weight Body temperature Oxygen saturation Heart rate Systolic And Diastolic Provider Name and Address Organization Details Last Updated DateTime 5 154.94 cm 42.7 kg/m2 182666. 88 g 97 [degF] 98 % 98 /min 122/84 mm[Hg] SYLVIA Reyes [place] [facility] [employer] [facility] 5 16:00:06 Social History Question Answer Notes LastModified by Organizat ion Details LastModified Time Tobacco Smoking Status Never Smoker Not Available [facility] 06/27/2022 04:23:43 Do You Have An Advance Directive? No Information not available 08/17/2022 Do You Wear A Helmet When Biking? Yes [id number] Information not available 06/27/2022 Is Blood Transfusion Acceptable In An Emergency? Yes Information not available 08/17/2022 What Is Your Level Of Caffeine Consumption? Moderate [id number].[id number] Information not available 06/27/2022 What Is Your Code Status? Full Code Information not available 08/17/2022 In The 14 Days Before Symptom Onset, Have You Had Close Contact With A Laboratory-confir med COVID-19 While That Case Was Ill? No [id number].52383 [id number] Information not available 06/27/2022 In The 14 Days Before Symptom Onset, Have You Had Close Contact With A Person Who Is Under Investigation For COVID-19 While That Person Was Ill? No [id number].[id number] Information not available 06/27/2022 What Type Of Diet Are You Following? REGULAR [id number].70492 41179 Information not available 06/27/2022 Which Illicit Or Recreational Drugs Have You Used? Marijuana MIGRATION.24137 33093 Information not available 06/27/2022 What Is The Highest Grade Or Level Of School You Have Completed Or The Highest Degree You Have Received? [id number] MIGRATION.21692 16526 Information not available 06/27/2022 Have There Been Any Changes To Your Family Or Social Situation? No Information no t available 10/22/2023 Do You Use Insect Repellent Routinely? Yes [id number].77911 [id number] Information not available 06/27/2022 Where Do You Live? SingleLevelHouse Information not available 09/05/2022 Do You Have A Medical Power Of Process Analyst? No Information not available 08/17/2022 How Many Children Do You Have? 3 Information not available 09/05/2022 Have You Ever Been Counseled For Unhealthy Alcohol Use? No MIGRATION.43461 24524 Information not available 06/27/2022 Do You Have Any Pets? Yes MIGRATION.75254 10995 Information not available 06/27/2022 What Is Your Relationship Status? MIGRATION.07737 37979 Information not available 06/27/2022 Do You Use Your Seat Belt Or Car Seat Routinely? Yes MIGRATION.85920 15421 Information not available 06/27/2022 Do You Have Smoke And Carbon Monoxide Detectors In Your Home? Yes MIGRATION.32829 02509 Information not available 06/27/2022 Are There Any Smokers In Your House? Yes MIGRATION.30247 80942 Information not available 06/27/2022 Do You Participate In Social Media? Yes MIGRATION.69202 55999 Information not available 06/27/2022 Do You Use Sunscreen Routinely? Yes MIGRATION.75746 97973 Information not available 06/27/2022 Has Tobacco Cessation Counseling Been Provided? No MIGRATION.54038 12922 Information not available 06/27/2022 Have You Recently Traveled Abroad? No MIGRATION.86878 84072 Information not available 06/27/2022 Have You Used IV Drugs? No MIGRATION.91015 87614 Information not available 06/27/2022 Do You Have Any Dietary Restrictions? No MIGRATION.12985 35090 Information not available 06/27/2022 Sex: Unknown Functional Status Question Answer Note LastModified by Organizat ion Details LastModified Time Do you use any illicit or recreational drugs? Yes MIGRATION.1955323 026 Information not available 06/27/2022 Do you or have you ever used any other forms of tobacco or nicotine? No MIGRATION.[id number] 026 Information not available 06/27/2022 What is your level of alcohol consumption? 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 None [id number] 026 Information not available 06/27/2022 Mental Status Question Answer Note LastModified by Organization D etails LastModified Time Do you feel stressed (tense, restless, nervous, or anxious, or unable to sleep at night)? [id number] Information not available 04/16/2024 Family History Relationship Description Onset Age of this Age Resolved Age Notes LastModified by Organization Details LastModified Time Father Hypertensive disorder [id number] Not available 06/27/2022 04:42:34 Notes:Mother- intestine issu es Medical History Condition Response HEADACHES/MIGRAINES Y HEART DISEASE/HEART PROBLEMS HYPERTENSION Y ANXIETY DISORDER Y Gynecological History Statement/Question Response Abnormal Pap N Flow Heavy Date of LMP 12/28/2020 STIs/STDs N Dislike of Light during Menstrual Headac he N Duration of Flow (days) 5 Most Recent Mammogram Current Control Method IUD Breast Problems none How many live births 3 Date of Last Colonoscopy Most Recent Bone Density Sexually Active? Y Menses Monthly N Date of Last Pap Smear 07/28/2021 Discharge none Obstetrics History GPAL:G 3 P 3 0 0 3 Type Value Full Term 3 Living 3 Total 3 Immunizations Vaccine Type Date Status Note Provider Nam e and Address Organization Details Recorded Time SARS-COV-2 (COVID-19) vaccine, UNSPECIFIED 1 completed Not Available [facility] 06/27/2022 04:59:31 SARS-COV-2 (COVID-19) vaccine, UNSPECIFIED 1 completed Not Available [facility] 06/27/2022 04:59:31 Influenza, split virus, quadrivalent, PF 9 completed Not Available [facility] 06/27/2022 04:59:32 Past Encounters Encounter ID Performer Location Encounter Start Date Encounter Closed Date Diagnosis/Indication Diagnosis SNOMED-CT Code Diagnosis ICD10 Code Diagnosis IMO Codes Diagnosis Note [id number] Homer Mittal MD [facility] [address] [address] 01/19/2025 15:50:48 01/20/2025 08:56:37 Physical examination 9077729 Z00.00 183781 [facility] maintenanc e reviewedDi scussed diet and exercisePa tient questions answered Essential tremor 6429926 09 G25.0 68106 Chronic but worsening, offered MRI and neuro referral, pt declines at this time Migraine with aura 53691 06 G43.109 Patient cannot tolerate side effects of sumatripta n, amitripyli ne ineffectiv e at reductionW ill decrease amitriptyl ine by 1/2 tab per month Health Concerns Section Related Observation LastModified by Organization Detai ls LastModified Time None Recorded Concern Status LastModified by Organization Details LastModified Time None Recorded Payers Encounter Date Sequence Insurance Name Policy Number Policy Cowan Covered Member ID Cowan Member ID Guarantor Name 01/19/2025 1 [facility] [id number] Kassie Vasquez [id number] Kassie Vasquez Notes Date Note Type Note Provider Name and Address Organization Details Recorded Time 01/19/2025 text/html Yvonne Vasquez is a 34 year old female patient here today to establish care. She has concerns today with an essential tremor. She notices this in [place] hands, wrists, knees, and in her eyes when supine.She states she has significant family history for this. She has a history of migraines. She is managed with amitriptyline 10 mg at bedtime and Ubrelvy PRN.She states the Ubrelvy is working well for abortive but amitriptyline is not controlling frequency She does taking fluoxetine for anxiety, this is working well Flu shot: will do this fallCOVID vaccines: x3Tdap: 06/17/2019PAP: 2021Mammogram or colonoscopy not indicated Brittany Lozano, NURSES EDUCATOR [address] [facility] [facility] [address], [place], [address], [facility] [employer] [facility] 01/19/2025 16:22:21 OBGyn Episode No OBEpisode recorded.
--- OUTSIDE RECORDS SUMMARY | 2025-03-21 13:00 | XMS_ITS | Clinical Summary ---
Author Organization [facility] Address [address] [place] [address] Care Team Providers Care Vending Attendant Name Role Phone Unknown, Notinfile Primary Care Provider Unavail able Allergies Active Allergy Reactions Criticality Noted Date Comments Sulfa Hives Medium 11/04/2023 Medications moxifloxacin (VIGAMOX) 0.5 % ophthalmic solution Administer 1 drop into the right eye every 6 (six) hours 2 drops in right eye every 2 hours for 2 days and then every 6 hours for 5 days. 3 mL Active Social History Tobacco Use Types Packs/Day Years Used Date Smoking Tobacco: Never Assessed Personal Safety Answer Date Recorded Have you ever been in or are you currently in a harmful physical or emotional relationship or is someone making you feel afraid or unsafe? Denies 11/04/2023 Comments No Sex and Gender Information Value Date Recorded Sex Assigned at Not on file Legal Sex Female 9:08 PM [employer] Gender Identity Not on file Sexual Orientation Not on file Last Filed Vital Signs Vital Sign Reading Time Taken Comments Blood Pressure 122/95 11/04/2023 2:00 PM CDT Pulse 87 11/04/2023 2:00 PM CDT Temperature 37 C (98.6 F) 11/04/2023 11:40 AM CDT Respiratory Rate 18 11/04/2023 11:40 AM CDT Oxygen Saturation 96% 11/04/2023 2:00 PM CDT Inhaled Oxygen Concentration - - Weight 93.9 kg (207 lb) 11/04/2023 11:40 AM CDT Height 154.9 cm (5' 1) 11/04/2023 11:40 AM CDT Body Mass Index 39.11 11/04/2023 11:40 AM CDT Plan of Treatment Health Maintenance Due Date Last Done Comments Cervical Cancer Screening 1991 Depression Screening 1991 Hepatitis C Screening 1991 Varicella Vaccines (1 of 2 - 13+ 2-dose series) 2004 Hepatitis B Screening 2009 Regular Well Visit/Exam 18-64 2009 HPV Vaccines (1 - 3-dose SCD M series) 2018 Influenza Vaccine (#1) 2024 9, 06/22/2018 DTaP/Tdap/Td Vaccine (2 - Td or Tdap) 06/17/2029 06/17/2019 Pneumococcal vaccine <65 Aged Out No longer eligible based on patient's age to complete this topic Care Teams Vending Attendant Relationship Specialty Start Date End Date Unknown, Notinfile PCP - General 11/04/23
--- OUTSIDE RECORDS SUMMARY | 2025-03-21 13:00 | XMS_ITS | Data Portability ---
Author Organization [facility], Main Office Address [address] [place] [address] Care Team Providers Care Obiee Consultant Name Role Phone [facility] (LAB) Primary Ca re Provider Assessment Encounter Date Assessment Date Assessment LastModified by Organization Details LastModified Time 07/28/2024 07/28/2024 The patient gave verbal consent using TeleHealth services and the consent is documented in the medical record prior to using the service. The patient has been informed of what a TeleMedicine visit is. Patient is located at home. Provider is located at office. Names and roles of persons in addition to the patient and provider participating in telemedicine services include none. The patient had a 10 minute TeleMedicine consultation via [employer] to discuss the following: [email or web address] Not available 07/28/2024 12:06:40 Plan of Treatment Reminders Order Date Submit Date Provider Last Modified By Organization Details Last Modified Time Details Appointments None recorded. Lab vitamin D3, 25-hydroxy, serum [address] (Lab), [address] [place], [address], 5 08:11:34 vitamin B12 + folate, serum or blood [address] (Lab), [address] [place], [address], 5 08:11:34 CBC w/ auto diff [address] (Lab), [address] [place], [address], 5 08:11:33 lipid panel, serum [address] (Lab), [address] [place], [address], 5 08:11:33 CMP, serum or plasma [address] (Lab), [address] [place], [address], 5 08:11:33 glycohemogl obin, total, blood [address] (Lab), [address] [place], [address], 5 08:11:34 TSH, serum or plasma [address] (Lab), [address] [place], [address], 5 08:11:34 rapid strep group A, throat 2024 [facility], [address] [place] [address], [address], 5 17:37:46 rapid flu (A+B) 2024 025 [facility], [address] [place] [address], [address], 5 17:38:37 Referral None recorded. Procedures None recorded. Surgeries None recorded. Imaging None recorded. Medication Orders propranolol [address] tablet [address] [facility] [place], [address], 5 16:17:23 Qulipta 30 mg tablet [address] [facility], [address] [place], [address], 5 16:17:24 Ubrelvy 100 mg tablet [address] [facility], [address] [place], [address], 5 16:17:22 Medrol (Donavan) 4 mg tablets in a dose pack [address] [facility], [address] [place] [address], [address], 5 15:57:30 benzonatate 200 mg capsule [address] [facility], [address] [place] [address], [address], 5 15:57:41 Medrol (Donavan) 4 mg tablets in a dose pack [address] [facility], [address] [place] [address], [address], 5 15:57:30 cyclobenzap rine 10 mg tablet [address] [facility], [address] [place] [address], [address], 5 15:57:47 triamcinolo ne acetonide 40 mg/mL suspension for injection 2023 024 Not available 5 16:42:15 trazodone 100 mg tablet [address] [facility], [address] [place] [address], [address], 4 16:29:36 meloxicam 7.5 mg tablet [address] [facility], [address] [place] [address], [address], 5 15:57:56 Ubrelvy 100 mg tablet [address] [facility], [address] [place] [address], [address], 4 16:29:31 Nurtec ODT 75 mg disintegrat ing tablet [address] [facility], [address] [place] [address], [address], 5 15:57:52 rizatriptan 10 mg tablet [address]23 [address] [address], [address] [place] [address], [address], 4 17:22:54 amitriptyli ne 10 mg tablet 2023 024 [address] [address], [address] [place] [address], [address], 5 16:15:28 Patient TargetsNo targets recorded. Patient Instructions Encounter Date Encounter Id Patient Instructions Last Modified By Organization Details Last Modified Time 10/22/2023 [id number] knee arthritis: exercises [facility] Not available 10/22/2023 16:29:24 07/28/2024 [id number] Due to the COVID-19 (Novel Coronavirus) pandemic, it is within this context (and with the understanding that this method of patient encounter is in the patient s best interest as well as the health and safety of other patients and the public) that [facility] is being provided for this patient encounter rather than a dtdg-zu-buds visit. This patient encounter is appropriate at this time. This patient has been advised of the potential risks and limitations of this mode of treatment (including, but not limited to, the absence of in-person examination) and has agreed to be treated in a remote fashion despite these risks. Any and all of the patient s /patient s family s questions on this issue have been answered, and I have made no promises or guarantees to the patient. The patient has also been advised to contact this office for worsening conditions or problems, and seek emergency medical treatment and/or call 911 if the patient deems either necessary. HPI and/or vitals, if listed, were provided by the patient. [email or web address] Not available 07/28/2024 11:55:51 Reason for Referral None Reported. Results Created Date Observation Date Name Description Value Unit Range Abnormal Flag Note LastModifiedBy Organization Detail LastModifiedTime 05/28/1905/28/2024 rapid flu (A+B) Flu A negati ve Not Available [address], [address], 05/28/2024 17:06:20 05/28/1905/28/2024 rapid strep group A, throa t STREP A negati ve Not Available [address], [address], 05/28/2024 17:06:48 Result Notes None recorded. Problems Name Problem SNOMED Code Status Onset Date Resolution Date Notes Provider Name and Address Organization Details Recorded Time Insomnia 726549968 Active 2018 Not Available [facility] 3 04:49:49 Excessive cerumen in ear canal 912208244 Active 2019 Not Available [employer] 3 04:49:49 Pain of right hip joint 05839008936 9102 Completed 201910/22/2023 SABRINA Garcia [address] [address], [place], [address] , [facility] [employer] 4 15:32:01 Depressiv e disorder 62401728 Active 2019 Not Available [facility] 3 04:49:49 Overactiv e urinary bladder 923924165 Active 2019 Not Available [facility] 3 04:49:49 Anxiety 03646278 Active 2019 Not Available [facility] 3 04:49:49 COVID-19 350550610 Completed 201910/22/2023 SABRINA Garcia [address], [address], [place], [address] , [email or web address] 4 15:32:33 63911669 Completed 202010/22/2023 SABRINA Garcia [address], [address], [place], [address] , [email or web address] 4 15:32:05 Abnormal heart beat 233886503 Active 2022 Sandi Augustin NP [address], [address], [place], [address] , [email or web address] 3 14:25:59 Upper respirato ry infection 69805513 Completed 202210/22/2023 SABRINA Garcia [address], [address], [place], [address] , [email or web address] 4 15:32:24 Migraine with aura 8561586 Active 2023 SABRINA Garcia [address], [address], [place], [address] , [email or web address] 5 16:21:06 Pain of right knee joint 91429769228 4100 Active 2023 SABRINA Garcia [address], [address], [place], [address] , [email or web address] 4 16:23:40 Muscle spasm of cervical muscle of neck 49184547161 4 Active 2023 SABRINA Garcia [address], [address], [place], [address] , [email or web address] 4 16:14:03 Cough 56187923 Active [address] [facility], [address], [place], [address] , [employer] 5 17:05:49 Viral upper respirato ry tract infection 148104883 Active [address] [facility], [address] [address], [place], [address] , [employer] 5 17:05:56 Sore throat 687497797 Active [address] [facility], [address] [address], [place], [address] , [employer] 5 17:06:44 Herpes simplex 57753113 Active [address] [facility], [address] [address], [place], [address] , [employer] 5 11:58:02 Essential tremor 009367642 Active [address] [facility], [address] [address], [place], [address] , [email or web address] 5 16:09:52 Problem Notes None recorded. Procedures Surgical History Date Name Laterality Status Provider Name and Address Organization Details Recorded Time 2 Date of Last Pap Smear completed Sandi Roger RN [facility] 08/17/2022 14:18:02 Eye Surgery completed Not Available [facility] 06/27/2022 04:42:30 Imaging Results None recorded. Procedure Notes None recorded. Medical Equipment None Reported. Allergies Allergen ID Allergen Name Allergen Category Reaction Reaction Severity Criticality Documentation Date Start Date Code Code System Note Provider Name and Address Organization Details Recorded Time 7339 Substance with sulfonami de structure and antibacte rial mechanism of action (substanc e) medicatio n hives Not available Not available 06/27/2022 27251 8003 SNOMED Not Available [facility] 3 04:59:54 Medications Name Sig Start Date [...] mass index (BMI) Body weight Body temperature Heart rate Respiratory rate Oxygen saturation Pain severity - 0-10 verbal numeric rating [Score] - Reported Systolic And Diastolic Provider Name and Address Organization Details Last Updated DateTime 5 154.94 cm 42.6 kg/m2 776234. 43 g 100.6 [degF] 154 /min 24 /min 97 % 6 122/98 mm[Hg] Sandi Roger RN [facility] [employer] [facility] 5 16:46:13 Date Recorded Body weight Body mass index (BMI) Body height Body temperature Heart rate Respiratory rate Oxygen saturation Pain severity - 0-10 verbal numeric rating [Score] - Reported Systolic And Diastolic Provider Name and Address Organization Details Last Updated DateTime 4 21134.4 4 g 40 kg/m2 154.94 cm 97.3 [degF] 102 /min 20 /min 97 % 3 137/88 mm[Hg] Sandi Roger RN [facility] [employer] [facility] 4 16:02:26 Date Recorded Body height Body mass index (BMI) Body weight Body temperature Oxygen saturation Heart rate Systolic And Diastolic Provider Name and Address Organization Details Last Updated DateTime 5 154.94 cm 42.7 kg/m2 536198. 88 g 97 [degF] 98 % 98 /min 122/84 mm[Hg] SYLVIA Reyes [facility] [employer] [facility] 5 16:00:06 Date Recorded Body height Body mass index (BMI) Body weight Body temperature Heart rate Respiratory rate Oxygen saturation Pain severity - 0-10 verbal numeric rating [Score] - Reported Systolic And Diastolic Provider Name and Address Organization Details Last Updated DateTime 4 154.94 cm 42.2 kg/m2 377504. 85 g 97.4 [degF] 99 /min 2 /min 98 % 3 150/100 mm[Hg] Sandi Roger RN [facility] [employer] [facility] 4 16:12:25 Social History Question Answer Notes LastModified by Organizat ion Details LastModified Time Tobacco Smoking Status Never Smoker Not Available [facility] 06/27/2022 04:23:43 Do You Have An Advance Directive? No Information not available 08/17/2022 Do You Wear A Helmet When Biking? Yes MIGRATION.93177 [id number] Information not available 06/27/2022 Is Blood Transfusion Acceptable In An Emergency? Yes Information not available 08/17/2022 What Is Your Level Of Caffeine Consumption? Moderate MIGRATION.67932 35066 Information not available 06/27/2022 What Is Your Code Status? Full Code Information not available 08/17/2022 In The 14 Days Before Symptom Onset, Have You Had Close Contact With A Laboratory-confir med COVID-19 While That Case Was Ill? No MIGRATION.38943 15818 Information not available 06/27/2022 In The 14 Days Before Symptom Onset, Have You Had Close Contact With A Person Who Is Under Investigation For COVID-19 While That Person Was Ill? No MIGRATION.49656 13392 Information not available 06/27/2022 What Type Of Diet Are You Following? REGULAR MIGRATION.58433 16456 Information not available 06/27/2022 Which Illicit Or Recreational Drugs Have You Used? Marijuana MIGRATION.47856 32090 Information not available 06/27/2022 What Is The Highest Grade Or Level Of School You Have Completed Or The Highest Degree You Have Received? AH28335-3 MIGRATION.12227 09939 Information not available 06/27/2022 Have There Been Any Changes To Your Family Or Social Situation? No Information no t available 10/22/2023 Do You Use Insect Repellent Routinely? Yes MIGRATION.79503 77100 Information not available 06/27/2022 Where Do You Live? SingleLevelHouse Information not available 09/05/2022 Do You Have A Medical Power Of Sql Analyst? No Information not available 08/17/2022 How Many Children Do You Have? 3 Information not available 09/05/2022 Have You Ever Been Counseled For Unhealthy Alcohol Use? No MIGRATION.15555 55986 Information not available 06/27/2022 Do You Have Any Pets? Yes MIGRATION.35044 72558 Information not available 06/27/2022 What Is Your Relationship Status? MIGRATION.44364 66016 Information not available 06/27/2022 Do You Use Your Seat Belt Or Car Seat Routinely? Yes MIGRATION.12190 35351 Information not available 06/27/2022 Do You Have Smoke And Carbon Monoxide Detectors In Your Home? Yes MIGRATION.09188 13947 Information not available 06/27/2022 Are There Any Smokers In Your House? Yes MIGRATION.55870 46471 Information not available 06/27/2022 Do You Participate In Social Media? Yes MIGRATION.82542 80363 Information not available 06/27/2022 Do You Use Sunscreen Routinely? Yes MIGRATION.89272 77857 Information not available 06/27/2022 Has Tobacco Cessation Counseling Been Provided? No MIGRATION.39350 18750 Information not available 06/27/2022 Have You Recently Traveled Abroad? No MIGRATION.87988 63166 Information not available 06/27/2022 Have You Used IV Drugs? No MIGRATION.44506 41416 Information not available 06/27/2022 Do You Have Any Dietary Restrictions? No MIGRATION.67637 58991 Information not available 06/27/2022 Sex: Unknown Functional Status Question Answer Note LastModified by Organizat ion Details LastModified Time Do you use any illicit or recreational drugs? Yes MIGRATION.0081304 026 Information not available 06/27/2022 Do you or have you ever used any other forms of tobacco or nicotine? No MIGRATION.0314501 026 Information not available 06/27/2022 What is your level of alcohol consumption? 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 None MIGRATION.9603828 026 Information not available 06/27/2022 Mental Status Question Answer Note LastModified by Organization D etails LastModified Time Do you feel stressed (tense, restless, nervous, or anxious, or unable to sleep at night)? [id number] Information not available 04/16/2024 Family History Relationship Description Onset Age of this Age Resolved Age Notes LastModified by Organization Details LastModified Time Father Hypertensive disorder MIGRATION.253 [id number] Not available 06/27/2022 04:42:34 Notes:Mother- intestine issu es Medical History Condition Response HEART DISEASE/HEART PROBLEMS HEADACHES/MIGRAINES Y ANXIETY DISORDER Y HYPERTENSION Y Gynecological History Statement/Question Response Abnormal Pap [...] (COVID-19) vaccine, UNSPECIFIED 1 completed Not Available [facility] 06/27/2022 04:59:31 SARS-COV-2 (COVID-19) vaccine, UNSPECIFIED 1 completed Not Available [facility] 06/27/2022 04:59:31 Influenza, split virus, quadrivalent, PF 9 completed Not Available [facility] 06/27/2022 04:59:32 Past Encounters Encounter ID Performer Location Encounter Start Date Encounter Closed Date Diagnosis/Indication Diagnosis SNOMED-CT Code Diagnosis ICD10 Code Diagnosis IMO Codes Diagnosis Note [id number] Homer Mittal MD [facility]_[address] [address] 11/29/2020 00:00:00 11/29/2020 14:49:50 [id number] [facility] _ATHENA_M IGRATION_ DEFAULT_1 _1 , 02/17/2021 00:00:00 02/17/2021 15:42:10 [id number] [facility] [address] _ATHENA_M IGRATION_ DEFAULT_1 _1 , 02/27/2021 00:00:00 02/27/2021 12:26:28 [id number] Homer Mittal MD [address] [address] 04/17/2022 00:00:00 04/17/2022 15:50:30 [id number] Sandi Augustin NP [address] [address] 08/17/2022 14:03:42 08/17/2022 14:38:50 Abnormal heart beat 856987544 R00.9 EKG ordered. Diabetes m ellitus screening 730285021 Z13.1 Thyroid di sorder screening 871944336 Z13.29 Hyperlipid emia screening 909020293 Z13.220 Anemia screening 2044155 07 Z13.0 [id number] Sandi Augustin NP [address] [address] 09/05/2022 12:34:01 09/05/2022 13:55:18 Upper respiratory infection 76169170 J06.9 Medrol dose donavan. Patient is aware to nurse baby, then take meds to get longest duration of time between medication and feedings. Can use nasal saline, warm salt water gargles otc. [id number] Homer Mittal MD [address] [address] 10/22/2023 15:46:59 10/22/2023 16:40:09 Migraine with aura 6571969 G43.109 Patient cannot tolerate side effects of sumatripta n Insomnia 519319961 F51.0 1 Pain of ri ght knee joint 4103179338 10270 M25.561 Utilize ice and heatIcyhot , bengay, biofreeze, VoltarenKn ee sleeveHome PT exercisesT ylenol 650 mg TID do not exceed 3,000 mg daily [id number] Homer Mittal MD [address] [address] 04/16/2024 15:52:13 04/16/2024 16:39:43 Muscle spasm of cervical muscle of neck 2122445099 04 M62.838 Advised to continue with ice and heat, add voltaren [id number] Homer Mittal MD [address] [address] 05/28/2024 16:19:33 05/28/2024 17:18:46 Cough 14600855 R05.9 Advised to utilize benzonatat e TID PRNAdvised to add mucinex DM and increase fluid intake Viral uppe r respiratory tract infection 263753024 J06.9 Advised to add OTC vitamin C and Zinc Sore throat 379057911 J0 2.9 [id number] Homer Mittal MD [address] [address] 07/28/2024 11:49:29 07/28/2024 12:08:44 Viral upper respiratory tract infection 049900656 J06.9 Advised to add OTC vitamin C and Zinc [id number] Homer Mittal MD [address] [place] [address] 01/19/2025 15:50:48 01/20/2025 08:56:37 Physical examination 9688014 Z00.00 [id number] Patient is overall healthyHea h maintenanc e reviewedDi scussed diet and exercisePa tient questions answered Essential tremor 0930648 09 G25.0 18124 Chronic but worsening, offered MRI and neuro referral, pt declines at this time Migraine with aura 08079 06 G43.109 Patient cannot tolerate side effects of sumatripta n, amitripyli ne ineffectiv e at reductionW ill decrease amitriptyl ine by 1/2 tab per month Health Concerns Section Related Observation LastModified by Organization Detai ls LastModified Time None Recorded Concern Status LastModified by Organization Details LastModified Time None Recorded Advance Directives Directive N: Payers Insurance Date Sequence Insurance Name Policy Number Policy Cowan Covered Member ID Cowan Member ID Guarantor Name 07/30/2024 1 [facility] Bo Vasquez [id number] Kassie Vasquez 01/13/2025 2 [facility] [id number] Kassie aVsquez [id number] Kassie Vasquez 01/13/2025 2 [facility] (PPO) [id number] Kassie Vasquez [id number] Kassie Vasquez 01/13/2025 1 [employer] (PPO) [id number] Kassie Vasquez [id number] Kassie Vasquez 01/16/2025 1 [facility]ATED [facility]IN [facility] [id number] Kassie Vasquez [id number] Kassie Vasquez Notes Date Note Type Note Provider Name and Address Organization Details Recorded Time 10/22/2023 text/html Kassie Bueno is a 33 year old female patient here today to establish care. She was previously under the care of Sandi Augustin. Her past medical history is significant for anxiety/depression. She is currently taking fluoxetine 40 mg PO daily. She has a history of migraines with aura, she is not taking a preventative but takes Sumatriptian as an abortive. She tracks intake and avoids trigger foods. She is having 2 migraines per months. She struggles with insomnia. She utilizes trazadone 100 mg PO HS for sleep. She has concerns today with knee pain. She has pain behind the right knee cap. XR offered and declined. She has lower back pain and states her pelvis is out of line, has gone to PT. XR offered and declined. Also has left should pain. XR offered and declined. SABRINA Garcia [address] [facility], [place], [address], [employer] 10/22/2023 16:39:41 04/16/2024 text/html Kassie Vasquez is a 33 year old female patient here today with concerns of neck pain Concerns of pain at the base of the skull radiating to the left shoulder. This began on 04/08/24. States pain can cause her to be in tears.Has tried skelaxin, heat, ice, massage with no reliefNo known injury SABRINA Garcia [address] [facility], [place], [address], [employer] 04/16/2024 16:37:03 05/28/2024 text/html Kassie Vasquez is a 34 year old female patient here today for a sick visit Since last night vomiting, headache, fever, body aches, coughing, chest tightness.Is taking ibuprofen and tylenol q 4 hrs. positive for Flu A SABRINA Garcia [address], [address], [place], [address], [employer] 05/28/2024 17:35:55 07/28/2024 text/html Yvonne Vasquez is a 34 year old female patient here today via telehealth for a sick visit Concerns with a productive cough, mucous, congestion, ear pain. Symptoms began 5 days ago. SABRINA Garcia [address], [address], [place], [address], [employer] 07/28/2024 12:07:07 01/19/2025 text/html Yvonne Vasquez is a 34 [...] x3Tdap: 06/17/2019PAP: 2021Mammogram or colonoscopy not indicated SABRINA Garcia [address], [address], [place], [address], [employer] 01/19/2025 16:22:21 OBGyn Episode No OBEpisode recorded.
--- OUTSIDE RECORDS SUMMARY | 2025-03-21 13:00 | XMS_ITS | Clinical Summary ---
Author Organization [facility] [employer] Address [address] [place] [address] Care Team Providers Care Public Address Technician Name Role Phone Sandi Augustin Tracie LI-DIGESTER OPERATOR HELPER Primary Care Provider Source Comments [facility] [employer],non-owned Affiliates and Associated Physician Practices is amultiple site organization consisting of ambulatory clinics and hospital sitesin [place], [place], [place] and [place]. This disclosure is being madepursuant to the Care Everywhere program and may not contain all information available regarding this patient. Last updated 18.[facility] [employer] Medications * Be aware that medications may not be up to date on this document. Alwaysverify current medications with the patient. ketorolac (TORADOL) 10 MG tablet Take 10 mg by mouth q6h PRN (Pain) for up to 20 doses. 20 tablet 0 02/21/2016 Active drospirenone-eth inyl estradiol (NANCY) 3-0.02 MG tablet Take 1 tablet by mouth DAILY. 02/20/2016 Active metaxalone (SKELAXIN) 800 MG tablet Take 800 mg by mouth 3X/day PRN (Pain). 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 Gender Identity Not on file Sexual Orientation Not on file Last Filed Vital Signs Vital Sign Reading Time Taken Comments Blood Pressure 140/82 02/21/2016 6:05 PM CDT Pulse 116 02/21/2016 6:05 PM CDT Temperature 36.9 C (98.4 F) 02/21/2016 6:00 PM CDT Respiratory Rate 16 02/21/2016 5:50 PM CDT Oxygen Saturation 98% 02/21/2016 6:05 PM CDT Inhaled Oxygen Concentration - - Weight 78.9 kg (174 lb) 02/21/2016 12:33 PM CDT Height 154.9 cm (5' 1) 02/21/2016 12:33 PM CDT Body Mass Index 32.88 02/21/2016 12:33 PM CDT Plan of Treatment Health Maintenance Due Date Last Done Comments HIV SCREENING 2006 HEPATITIS C SCREENING 05/07/2009 DTAP/TDAP/TD VACCINES (1 - Tdap) 2010 HEPATITIS B VACCINE (1 of 3 - 19+ 3-dose series) 2010 PAP SMEAR 2012 HPV VACCINE (1 - 3-dose SCDM series) 2018 Cervical Cancer Screening 2021 PAP with HPV 2021 DEPRESSION SCREENING 04/29/2024 COVID-19 VACCINE (1 - 2024-2 6 season) 2024 INFLUENZA VACCINE (#1) 2024 ZOSTER VACCINE (1 of 2) 2041 HIB VACCINE Aged Out No longer eligi ble based on patient's age to complete this topic MENINGOCOCCAL (Group B) VACC INE SHARED DECISION-MAKING Aged Out No longer eligibl e based on patient's age to complete this topic MENINGOCOCCAL GROUPS A/C/Y/W VACCINE Aged Out No longer eligible b ased on patient's age to complete this topic PNEUMOCOCCAL VACCINE Aged Out No long er eligible based on patient's age to complete this topic Care Teams Public Address Technician Relationship Specialty Start Date End Date Sandi Augustin, TERRAPIN FISHER-DIGESTER OPERATOR HELPER [address] [place] [address] PCP - General 10/12/21
[2025-03-21 14:43] VITALS: BP 124/78; PULSE 75; RESP 18; O2SAT 99
== END 2025-03-21 14:44 | disposition home or self-care (01) ==
PROVIDERS: Emergency Provider Emergency Medicine
DX: S06.0XAA Concussion with loss of consciousness status unknown, initial encounter (principal); V00.121A Fall from non-in-line roller-skates, initial encounter; Y93.51 Activity, roller skating (inline) and skateboarding; Z87.891 Personal history of nicotine dependence; G47.9 Sleep disorder, unspecified
CPT/HCPCS: 70450; 72125; 99284

== ENCOUNTER 2025-03-29 16:22 | Emergency (ER) | payer OTHER, SELFPAY ==
--- OUTSIDE RECORDS SUMMARY | 2025-03-29 16:25 | XMS_ITS | Clinical Summary ---
Author Organization [facility] [employer] Address [address] [place] [address] Care Team Providers Care [employer]oured [employer] Officer Name Role Phone Sandi Augustin Tracie LI-TRANSFER AND PUMPHOUSE OPERATOR CHIEF Primary Care Provider Source Comments [facility] [employer],non-owned Affiliates and Associated Physician Practices is amultiple site organization consisting of ambulatory clinics and hospital sitesin [place], [place], [place] and [place]. This disclosure is being madepursuant to the Care Everywhere program and may not contain all information available regarding this patient. 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
--- OUTSIDE RECORDS SUMMARY | 2025-03-29 16:25 | XMS_ITS | Clinical Summary ---
Author Organization [facility] Address [address] [place] [address] Care Team Providers Care Slumber Room Attendant Name Role Phone Unknown, Notinfile Primary [...] on file Legal Sex Female 9:08 PM COMPO CASTER Gender Identity Not on file Sexual Orientation [...] age to complete this topic Care Teams Slumber Room Attendant Relationship Specialty Start Date End Date Unknown, Notinfile PCP - General 11/04/23
[2025-03-29 16:58] VITALS: BP 128/87; PULSE 76; RESP 16; TEMP 36.6; O2SAT 99
--- NOTE | 2025-03-29 20:02 | PC.NURSE ---
pt called to get another set of vitals. No answer
--- NOTE | 2025-03-29 22:09 | PC.NURSE ---
pt called for another set of vitals. No answer
--- OUTSIDE RECORDS SUMMARY | 2025-03-29 22:38 | XMS_ITS | Clinical Summary ---
Author Organization [facility] [employer] Address [address] [place] [address] Care Team Providers Care Development System Efficiency Manager Name Role Phone Sandi Augustin Tracie LI-WATER SANDER Primary Care Provider Source Comments [facility] [employer],non-owned Affiliates and Associated Physician Practices is amultiple site organization consisting of ambulatory clinics and hospital sitesin [place], [place], [place] and [place]. This disclosure is being madepursuant to the Care Everywhere program and may not contain all information available regarding this patient. Last updated 18.[facility] [employer] Medications * Be aware that medications may [...] on file Legal Sex Female 5:41 PM NIGHT CLERK AUDITOR Gender Identity Not on file Sexual Orientation [...] age to complete this topic Care Teams Development System Efficiency Manager Relationship Specialty Start Date End Date Sandi Augustin, CUSTOMER ENERGY SPECIALIST-WATER SANDER [address] [place] [address] PCP - General 10/12/21
--- OUTSIDE RECORDS SUMMARY | 2025-03-29 22:38 | XMS_ITS | Clinical Summary ---
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
== END 2025-03-29 20:02 | disposition left against medical advice (07) ==
DX: R51.9 Headache, unspecified (principal)
CPT/HCPCS: 99199